=== PATIENT | female | born 1950 | race Caucasian/White ===

== ENCOUNTER → 2017-07-19 12:27 | Outpatient (CLI) | payer MEDICARE, SELFPAY ==
--- NOTE | 2017-07-19 12:31 | XR_ITS ---
XR foot wt bearing RT 3V HISTORY: ITS.REASON: foot pain ORDERING PHYSICIAN: Mavis Haq DPM PATIENT AGE: 67 years COMPARISON: None FINDINGS: Moderate to severe hallux valgus with first metatarsophalangeal angle of 42 degrees and 9 mm lateral subluxation of the proximal phalanx of the great toe with bony hypertrophic change of the distal aspect of the first metatarsal. Mild lateral angulation also noted at the second and third phalanges. Osteoarthritic changes are present at the second and third metatarsal tarsal junction. Mild pes planus with bony hypertrophic change dorsally at the mid foot. IMPRESSION: 1. Hallux valgus with osteoarthritis and bunion formation. 2. Pes planus. 3. Osteoarthritic change with bony hypertrophy at second and third metatarsal tarsal junction
--- NOTE | 2017-07-19 12:31 | XR_ITS ---
XR foot wt bearing LT 3V HISTORY: Left foot pain ITS.REASON: Foot Pain ORDERING PHYSICIAN: Mavis Haq DPM PATIENT AGE: 67 years COMPARISON: None FINDINGS: There is moderate hallux valgus with first metatarsophalangeal angle of 33 degrees. There are 6 mm lateral subluxation of the proximal phalanx of the great toe with osteoarthritic change of the first metatarsophalangeal junction and hypertrophic changes of the distal aspect of the first metatarsal. There is also mild valgus angulation and subluxation of the proximal phalanx of the second and third toes. There is an old healed fracture of the midshaft of the fourth metatarsal. There is pes planus. Only hypertrophic changes are present at the second and third metatarsal tarsal junctions with osteoarthritis in bony spurring dorsally. IMPRESSION: 1 hallux valgus with osteoarthritis in bunion formation. 2. Pes planus. 3. Osteoarthritis with bony spurring at the second and third metatarsal tarsal junction with mild lateral angulation and subluxation of the proximal phalanx of the second and third toes. 4. Old fourth metatarsal fracture
== END ==
PROVIDERS: Visit Provider Podiatrist
DX: M79.673 Pain in unspecified foot (principal)
CPT/HCPCS: 73630

== ENCOUNTER → 2017-08-04 07:59 | Outpatient (CLI) | payer MEDICARE, SELFPAY ==
--- NOTE | 2017-08-04 08:04 | XR_ITS ---
XR knee RT 4V HISTORY: ITS.REASON: right knee pain/ weightbearing ORDERING PHYSICIAN: Seven Hogdes MD PATIENT AGE: 67 years COMPARISON: None FINDINGS: Mild osteoarthritic changes are present involving all 3 departments slightly worse at the lateral compartment and patellofemoral joint. No fracture or dislocation. IMPRESSION: Osteoarthritis
--- NOTE | 2017-08-04 08:04 | XR_ITS ---
XR knee LT 4V HISTORY: ITS.REASON: left knee pain/ weightbearing ORDERING PHYSICIAN: Seven Hodges MD PATIENT AGE: 67 years COMPARISON: None FINDINGS: There are mild osteoarthritic changes involving all 3 compartments slightly worse at the patellofemoral joint. There is a prominent osteophyte along the lateral aspect of the proximal tibia projecting superiorly. No fracture or dislocation. IMPRESSION: Tricompartmental osteoarthritis worse at the patellofemoral joint with prominent lateral by about the proximal tibia
== END ==
PROVIDERS: Visit Provider Orthopaedic Surgery
DX: M25.561 Pain in right knee (principal); M25.562 Pain in left knee
CPT/HCPCS: 73564

== ENCOUNTER → 2017-12-28 13:26 | Outpatient (CLI) | payer MEDICARE, SELFPAY | PROVIDERS: Visit Provider Podiatrist | DX: B35.1 Tinea unguium (principal) | CPT/HCPCS: 87102; 87206; 87220 ==

== ENCOUNTER → 2018-01-05 12:41 | Outpatient (CLI) | payer MEDICARE, SELFPAY ==
--- NOTE | 2018-01-05 13:17 | MR_ITS ---
MR foot RT wo/w con HISTORY: Pain at the second and third metatarsal phalangeal joint. Painful to walk on, bunion ITS.REASON: pain ORDERING PHYSICIAN: Mavis Haq DPM PATIENT AGE: 67 years Comparison: None TECHNIQUE: Standard multiplanar multiecho sequences are performed without and with gadolinium enhancement. FINDINGS: There is moderate hallux valgus with first metatarsal phalangeal angle of 30 degrees. There is 7 mm lateral displacement of the proximal phalanx of the great toe with lateral displacement of the sesamoid at the first metatarsophalangeal joint. There is bunion formation at the distal aspect of the first metatarsal with osteoarthritic change of the first metatarsal phalangeal joint subcortical cystic change medially measuring 9 mm. There is also lateral angulation of the second and third proximal phalanges with mild lateral displacement of the proximal phalanges by approximately 3 to 4 mm. There is a small amount of fluid along the distal aspect of the first, second and third metatarsals suggesting intermetatarsal bursitis. No obvious fracture or dislocation. No evidence of osteomyelitis. IMPRESSION: 1. Moderate hallux valgus with osteoarthritis of the first MTP joint and bunion formation. 2. Suspect intermetatarsal bursitis at the distal aspect of the first, second, and third metatarsals.
[2018-01-05 13:19] LABS: Blood Urea Nitrogen 17 mg/dL (7-18); Creatinine,Serum 0.91 mg/dL (0.55-1.02); Estimated Glomerular Filt Rate 61 ml/min (>60); GFR (African American) 74 ML/MIN (>60)
--- NOTE | 2018-01-05 14:55 | HMH.ITSHM ---
Current Home Medications as stated by this patient Irene Ramirez or ambulatory services representative. []SYNTHROID OMEPRAZOLE NABUMETONE ALENDRONATE SOD ASPIRIN MULTIVITAMIN VITAMIN E FISH OIL CALCIUM VITAMIN D3 SUPER B COMPLEX GLUCOSAMINE W/ HYALUROIC ACID TYLENOL
== END ==
PROVIDERS: Visit Provider Podiatrist
DX: M76.821 Posterior tibial tendinitis, right leg (principal); M76.822 Posterior tibial tendinitis, left leg
CPT/HCPCS: 36415; 73720; 82565; 84520; A9576

== ENCOUNTER → 2018-02-01 10:30 | Outpatient (CLI) | payer MEDICARE, SELFPAY ==
--- NOTE | 2018-02-01 12:45 | MR_ITS ---
No Charge MR MRI of the right foot without and with contrast CLINICAL INDICATION: Foot pain with bunions EXAM is repeated to include the mid hindfoot. The forefoot was described on the previous exam. ORDERING PHYSICIAN: Mavis Haq DPM PATIENT AGE: 68 years Comparison: 01/05/2018 TECHNIQUE: Pre- and post enhanced large [id number] images obtained of the entire foot FINDINGS: Please see previous exam for forefoot description. There is severe hallux valgus with mild lateral displacement of the proximal phalanx of the great toe. Severe osteoarthritic changes are present involving the mid foot at the second, third, and fourth tarsometatarsal junction with subcortical cystic changes. There is some minimal enhancement at these joint spaces widely related to underlying inflammation from osteoarthritis. No fracture or dislocation. Prominent bony hypertrophic changes are present at the second and third metatarsal tarsal joints dorsally. No abscess. No convincing evidence of osteomyelitis. There is slight increase T1 and T2 signal involving the distal aspect of the posterior tibialis tendon consistent with tendinopathy/tendinosis. No definite tear. The flexor digitorum longus has an unremarkable appearance. There is thinning of the flexor hallucis longus as best detected on the sagittal images with some increased T2 signal about the tendon at this area and could represent tendinitis/tendinosis or partial tear. A complete tear is not felt to be present. No obvious ligamentous abnormalities. The ligaments of the ankle are not well demonstrated on this large field of view image.. Small amount fluid is noted at the posterior talocalcaneal junction. IMPRESSION: 1. Severe osteoarthritis of the second and third and fourth metatarsal tarsal junction with bony hypertrophy and subcortical cystic changes. 2. Partial tear versus tendinosis/tendinitis of the flexor hallucis longus. The posterior tibialis has an unremarkable appearance. 3. Severe hallux valgus with osteoarthritis of the first MTP joint 4. No evidence of osteomyelitis, mass, or abscess
== END ==
PROVIDERS: Visit Provider Podiatrist
DX: M76.821 Posterior tibial tendinitis, right leg (principal); M76.822 Posterior tibial tendinitis, left leg

== ENCOUNTER → 2018-02-16 12:32 | Outpatient (CLI) | payer MEDICARE, SELFPAY ==
--- NOTE | 2018-02-16 12:51 | XR_ITS ---
XR chest 2V HISTORY: Epigastric pain ITS.REASON: REFLUX, PREOP ORDERING PHYSICIAN: Mavis Haq DPM PATIENT AGE: 68 years COMPARISON: None available FINDINGS: The cardiomediastinal silhouette and pulmonary vascularity are within normal limits. The lungs are clear without infiltrates, suspicious nodules, or pleural effusions. No acute bony abnormalities. There is a moderate sized hiatal hernia seen to the cardiac shadow. IMPRESSION: Negative chest, no acute finding
[2018-02-16 13:51] LABS: Basophils # 0.1 K/mm3 (0-0.2); Basophils % 0.6 % (0.1-2.0); Eosinophils # 0.1 K/mm3 (0.0-0.4); Eosinophils % 1.7 % (0.1-12.0); Hematocrit 46.3 % (37.0-47.0); Hemoglobin 14.7 g/dL (12.2-16.2); Lymphocytes # 2.2 K/mm3 (0.7-4.5); Mean Corpuscular HGB Conc 31.7 g/dL (31.8-35.4); Mean Corpuscular Hemoglobin 28.2 pg (27.0-31.2); Mean Corpuscular Volume 89.1 fl (81-99); Mean Platelet Volume 7.7 fl (7.4-10.4); Monocytes # 0.5 K/mm3 (0.1-1.0); Monocytes % 5.6 % (1.7-9.3); Neutrophils # 5.1 K/mm3 (1.8-7.8); Neutrophils % 64.1 % (37.0-80.0); Platelet Count 284 K/mm3 (142-424); Red Cell Distribution Width 13.1 % (11.5-17.5); White Blood Count 7.9 K/mm3 (4.8-10.8)
[2018-02-16 14:18] LABS: Alanine Aminotransferase 33 U/L (12-78); Albumin Level 3.4 gm/dL (3.4-5.0); Albumin/Globulin Ratio 0.9 (1.1-1.8); Alkaline Phosphatase 94 U/L (46-116); Anion Gap 13.6 mEq/L (5-15); Aspartate Amino Transferase 28 U/L (15-37); Bilirubin,Total 0.9 mg/dL (0.2-1.0); Blood Urea Nitrogen 16 mg/dL (7-18); Calcium 8.8 mg/dL (8.5-10.1); Carbon Dioxide 29 mmol/L (21.0-32.0); Chloride 104 mmol/L (98-107); Creatinine,Serum 1.04 mg/dL (0.55-1.02); Estimated Glomerular Filt Rate 52 ml/min (>60); GFR (African American) 63 ML/MIN (>60); Globulin 3.6 gm/dl (1.3-3.2); Glucose 94 mg/dL (74-106); Potassium 4.6 mmoL/L (3.5-5.1); Sodium 142 mmol/L (136-145)
[2018-02-18 10:56] LABS: Vitamin D 25 Hydroxy 57.4 ng/mL (30.0-100.0)
== END ==
PROVIDERS: Visit Provider Podiatrist
DX: Z01.818 Encounter for other preprocedural examination (principal)
CPT/HCPCS: 36415; 71046; 80053; 82652; 85025

== ENCOUNTER → 2018-03-09 12:37 | Outpatient (CLI) | payer MEDICARE, SELFPAY ==
--- NOTE | 2018-03-09 12:42 | XR_ITS ---
XR foot wt bearing RT 3V HISTORY: Follow-up surgery ITS.REASON: post-op views ORDERING PHYSICIAN: Mavis Haq DPM PATIENT AGE: 68 years COMPARISON: 02/24/2018 FINDINGS: Posterior splint remains in place. No change status post dorsal bone plate and navicular, medial cuneiform, and proximal aspect of the first metatarsal. Transverse screw within the Roxanol first and second metatarsals, oblique screw within the midfoot at the navicular and second cuneiform region along with a staple at the cuneiform area. There is good alignment. There is a small density medial to the mid aspect of the bone plate and could be due to bone fragment or artifact from the cast. IMPRESSION: Good alignment status post midfoot fusion as previously described
== END ==
PROVIDERS: Visit Provider Podiatrist
DX: Z98.890 Other specified postprocedural states (principal)
CPT/HCPCS: 73630

== ENCOUNTER → 2018-03-23 14:05 | Outpatient (CLI) | payer MEDICARE, SELFPAY ==
--- NOTE | 2018-03-23 14:09 | XR_ITS ---
XR foot wt bearing RT 3V HISTORY: Follow-up surgery status post arthrodesis ITS.REASON: post-op ORDERING PHYSICIAN: Mavis Haq DPM PATIENT AGE: 68 years COMPARISON: 03/09/2018 FINDINGS: The posterior splint has been removed. Posterior bone plate at the navicular, first cuneiform, and proximal first metatarsal remains in place with multiple screws. The screw within the navicular into the mid cuneiform and medial aspect of the third cuneiform and the transverse screw at the base of the first and second metatarsals as well as the staple at the navicular and third cuneiform once again noted. There remains good alignment. No evidence of hardware malfunction. IMPRESSION: Good alignment status post midfoot fusion as described above with no complications apparent
== END ==
PROVIDERS: Visit Provider Podiatrist
DX: Z98.890 Other specified postprocedural states (principal)
CPT/HCPCS: 73630; 87070; 87077; 87186; 87205

== ENCOUNTER → 2018-04-12 09:53 | Outpatient (CLI) | payer MEDICARE, SELFPAY ==
--- NOTE | 2018-04-12 10:07 | XR_ITS ---
XR foot wt bearing LT 3V HISTORY: Follow-up fusion ITS.REASON: Post-op ORDERING PHYSICIAN: Mavis Haq DPM PATIENT AGE: 68 years COMPARISON: 03/23/2018 FINDINGS: Status post midfoot fusion with dorsal bone plate at the navicular, medial cuneiform, and proximal aspect of the first metatarsal with additional stabilizing screws into the base of the second metatarsal and middle cuneiform as well as a staple at the lateral cuneiform and navicular region. This is not significant changed. There remains good alignment. There has been prior bunionectomy at the first metatarsal distally. No bony erosive process or hardware malfunction evident. IMPRESSION: Status post midfoot arthrodesis and bunionectomy as described above not significantly changed
== END ==
PROVIDERS: Visit Provider Podiatrist
DX: Z98.890 Other specified postprocedural states (principal)
CPT/HCPCS: 73630

== ENCOUNTER → 2018-04-17 14:53 | Outpatient (CLI) | payer MEDICARE, SELFPAY ==
[2018-04-17 15:08] LABS: Basophils % 0.5 % (0.1-2.0); Eosinophils # 0.2 K/mm3 (0.0-0.4); Eosinophils % 2.2 % (0.1-12.0); Hematocrit 46.1 % (37.0-47.0); Hemoglobin 14.9 g/dL (12.2-16.2); Lymphocytes # 1.8 K/mm3 (0.7-4.5); Lymphocytes % 25.4 % (10-50); Mean Corpuscular HGB Conc 32.3 g/dL (31.8-35.4); Mean Corpuscular Hemoglobin 28.5 pg (27.0-31.2); Mean Corpuscular Volume 88.3 fl (81-99); Mean Platelet Volume 7.6 fl (7.4-10.4); Monocytes # 0.4 K/mm3 (0.1-1.0); Monocytes % 6.2 % (1.7-9.3); Neutrophils # 4.7 K/mm3 (1.8-7.8); Neutrophils % 65.7 % (37.0-80.0); Platelet Count 264 K/mm3 (142-424); Red Blood Count 5.22 M/mm3 (4.20-5.40); Red Cell Distribution Width 12.6 % (11.5-17.5); White Blood Count 7.2 K/mm3 (4.8-10.8)
[2018-04-17 15:58] LABS: Erythrocyte Sedimentation Rate 10 mm/hr (0-30)
[2018-04-17 16:39] LABS: Alanine Aminotransferase 35 U/L (12-78); Albumin Level 3.5 gm/dL (3.4-5.0); Alkaline Phosphatase 94 U/L (46-116); Anion Gap 14.1 mEq/L (5-15); Aspartate Amino Transferase 23 U/L (15-37); Bilirubin,Total 1.1 mg/dL (0.2-1.0); Blood Urea Nitrogen 21 mg/dL (7-18); Calcium 9.5 mg/dL (8.5-10.1); Carbon Dioxide 28 mmol/L (21.0-32.0); Chloride 104 mmol/L (98-107); Creatinine,Serum 1.09 mg/dL (0.55-1.02); Estimated Glomerular Filt Rate 50 ml/min (>60); GFR (African American) 60 ML/MIN (>60); Globulin 3.6 gm/dl (1.3-3.2); Glucose 95 mg/dL (74-106); Potassium 4.1 mmoL/L (3.5-5.1); Sodium 142 mmol/L (136-145); Total Protein,Serum 7.1 gm/dL (6.4-8.2)
[2018-04-17 16:42] LABS: C-Reactive Protein < 0.2 mg/L (0.0-0.9)
== END ==
PROVIDERS: Visit Provider Podiatrist
DX: T81.31XA Disruption of external operation (surgical) wound, not elsewhere classified, initial encounter (principal); Z98.890 Other specified postprocedural states
CPT/HCPCS: 36415; 80053; 85025; 85651; 86140

== ENCOUNTER → 2018-05-11 10:03 | Outpatient (CLI) | payer MEDICARE, SELFPAY ==
--- NOTE | 2018-05-11 10:08 | XR_ITS ---
XR foot wt bearing RT 3V HISTORY: Follow-up fusion ITS.REASON: post-op views ORDERING PHYSICIAN: Mavis Haq DPM PATIENT AGE: 68 years COMPARISON: 04/12/2018 FINDINGS: Status post midfoot fusion as previously described. Bone plate screws and staple remain in place. No evidence of hardware failure. There remains good alignment. IMPRESSION: No change midfoot fusion
== END ==
PROVIDERS: Visit Provider Podiatrist
DX: Z98.890 Other specified postprocedural states (principal)
CPT/HCPCS: 73630

== ENCOUNTER → 2018-06-06 11:14 | Outpatient (CLI) | payer MEDICARE, SELFPAY ==
--- NOTE | 2018-06-06 11:21 | XR_ITS ---
XR foot wt bearing RT 3V HISTORY: Follow-up surgery ITS.REASON: post-op ORDERING PHYSICIAN: Mavis Haq DPM PATIENT AGE: 68 years COMPARISON: 05/11/2018 FINDINGS: Status post midfoot fusion as previously described with no change in the dorsomedial bone plate at the navicular, first cuneiform, and first metatarsal with stabilizing screws. No change in the staple at the navicular cuneiform region. There remains mild hallux valgus. IMPRESSION: Good alignment status post midfoot fusion, no significant change
== END ==
PROVIDERS: Visit Provider Podiatrist
DX: Z98.890 Other specified postprocedural states (principal)
CPT/HCPCS: 73630

== ENCOUNTER → 2018-07-18 12:42 | Outpatient (CLI) | payer MEDICARE, SELFPAY ==
--- NOTE | 2018-07-18 12:45 | XR_ITS ---
XR foot wt bearing LT 3V HISTORY: ITS.REASON: pain ORDERING PHYSICIAN: Mavis Haq DPM PATIENT AGE: 68 years COMPARISON: 07/19/2017 FINDINGS: There remains moderate hallux valgus with osteoarthritis of the first MTP joint and bunion formation at the distal first metatarsal. Osteoarthritic changes are present at the metatarsal tarsal joint of the second and third metatarsals. There is an old fifth metatarsal fracture. Prominent bony hypertrophic changes are present dorsally at the second and third metatarsal tarsal joint. IMPRESSION: No change hallux valgus with osteoarthritis
--- NOTE | 2018-07-18 12:45 | XR_ITS ---
XR ankle wt bearing LT min 3V HISTORY: ITS.REASON: pain ORDERING PHYSICIAN: Mavis Haq DPM PATIENT AGE: 68 years Comparison: None FINDINGS: Some artifact from overlying bandage No fracture or dislocation. No lytic or blastic change. There is normal mineralization.. The joint spaces are well-preserved. No significant degenerative/arthritic changes. No erosive changes evident. IMPRESSION: Negative ankle, no acute finding
== END ==
PROVIDERS: Visit Provider Podiatrist
DX: M25.572 Pain in left ankle and joints of left foot (principal)
CPT/HCPCS: 73610; 73630

== ENCOUNTER → 2018-09-18 09:15 | Outpatient (CLI) | payer MEDICARE, SELFPAY ==
[2018-09-18 09:30] LABS: Blood Urea Nitrogen 14 mg/dL (7-18); Creatinine,Serum 1.11 mg/dL (0.55-1.02); Estimated Glomerular Filt Rate 49 ml/min (>60); GFR (African American) 59 ML/MIN (>60)
--- NOTE | 2018-09-18 09:33 | MR_ITS ---
MR ankle LT wo/w con CLINICAL INDICATION: Medial sided ankle pain, previous injury with pain and swelling, tibial tendinitis ITS.REASON: Tendon Injury ORDERING PHYSICIAN: Mavis Haq DPM PATIENT AGE: 68 years Comparison: 07/18/2018 TECHNIQUE: Routine multiplanar multiecho sequences are performed without and with gadolinium enhancement. FINDINGS: There is mild diffuse subcutaneous soft tissue swelling. Fluid is present superior to the calcaneus, posterior to the talus, and along the anterior tibiotalar joint. There is a small amount of fluid and edema of the soft tissues around the superior aspect of the tibialis posterior tendon. The axial images suggest a small split tear superiorly 2.6 cm above the level of the ankle joint. The distal aspect of the tibialis posterior shows increased signal on the sagittal images however, this may be due to magic angle artifact appearing to be intact on the axial images. Cannot exclude a partial tear or tendinitis distally. The flexor digitorum longus and flexor hallucis longus tendons have an unremarkable appearance. The Achilles tendon appears intact. The peroneal tendons also appear intact. There is a small amount fluid along the lateral aspect of the calcaneal talar region. Small amount of fluid is also present around the flexor hallucis longus at the level of the ankle joint. There is also some fluid around the tendon of the anterior tibialis tendon. No fracture or dislocation of the bones of the ankle. The anterior and posterior tibiofibular ligaments appear intact as does the posterior talofibular ligament. There does appear to be a chronic tear of the anterior talofibular ligament with thinning of the ligament and small amount fluid in this region. Doppler ligament appears intact. IMPRESSION: 1. Suspect small split tear of the proximal aspect of the posterior tibialis tendon with tenosynovitis of the tendon sheath proximally. Increased T2 signal on the sagittal images of the distal aspect of the posterior tibialis which may be magic angle artifact. Cannot exclude partial tear/tendinosis. 2. 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 3. Tenosynovitis of the anterior tibialis tendon 4. Soft tissue swelling lung medial aspect of the ankle with ankle joint effusions IMPRESSION:
--- NOTE | 2018-09-18 09:33 | MR_ITS ---
MR foot LT wo/w con CLINICAL INDICATION: Medial sided ankle pain, prior injury with pain, tendinitis ITS.REASON: Tendon Injury ORDERING PHYSICIAN: Mavis Haq DPM PATIENT AGE: 68 years Comparison: 07/18/2018 TECHNIQUE: Routine multiplanar multiecho sequences are performed without and with gadolinium enhancement FINDINGS: Please see MRI ankle report for ankle and hindfoot findings. IMPRESSION: There is moderate to severe hallux valgus with osteoarthritic change of the first metatarsal phalangeal joint with bony hypertrophy of the distal aspect of the first metatarsal there is lateral displacement of the flexor hallucis longus tendon. Severe osteoarthritic changes are present at the first, second, and third metatarsal are still joints. No obvious ligamentous abnormality of the forefoot. No abnormal enhancement. No evidence of osteomyelitis or acute fracture. IMPRESSION: Hallux valgus with severe osteoarthritis of the first and second and third metatarsal tarsal joints
--- NOTE | 2018-09-18 11:30 | HMH.ITSHM ---
Current Home Medications as stated by this patient Irene Ramirez or primary care sales representative. []SYNTHROID PRILOSEC FOSMAX
== END ==
PROVIDERS: Visit Provider Podiatrist
DX: M76.822 Posterior tibial tendinitis, left leg (principal)
CPT/HCPCS: 36415; 73720; 73723; 82565; 84520; A9576

== ENCOUNTER → 2018-12-11 11:59 | Outpatient (CLI) | payer MEDICARE, SELFPAY ==
--- NOTE | 2018-12-11 12:38 | ECG_ITS ---
APPROVED REPORT Exam: Resting ECG HR:61 bpm ECG Measurements Heart Rate 61 AXES TX 144 P 44 QRSd 80 QRS -2 QT 414 T 23 QTc 416 <Conclusion> Normal sinus rhythm Normal ECG Electronically signed by : Juan Jose Moreno, 12/11/2018 18:26:38
[2018-12-11 12:44] LABS: Basophils # 0.1 K/mm3 (0-0.2); Eosinophils # 0.2 K/mm3 (0.0-0.4); Eosinophils % 2.3 % (0.1-12.0); Hematocrit 46.5 % (37.0-47.0); Hemoglobin 15.3 g/dL (12.2-16.2); Lymphocytes # 2.1 K/mm3 (0.7-4.5); Mean Corpuscular HGB Conc 32.9 g/dL (31.8-35.4); Mean Corpuscular Volume 88.1 fl (81-99); Mean Platelet Volume 8.3 fl (7.4-10.4); Monocytes # 0.5 K/mm3 (0.1-1.0); Monocytes % 7.5 % (1.7-9.3); Neutrophils % 58.2 % (37.0-80.0); Platelet Count 262 K/mm3 (142-424); Red Blood Count 5.28 M/mm3 (4.20-5.40); Red Cell Distribution Width 12.9 % (11.5-17.5); White Blood Count 6.8 K/mm3 (4.8-10.8)
--- NOTE | 2018-12-11 12:44 | XR_ITS ---
PROCEDURE: XR CHEST 2V CLINICAL HISTORY: HTN, PRE OP COMPARISON: CXR2V XR chest 2V from 02/16/2018 FINDINGS: The cardiomediastinal silhouette and pulmonary vascularity are within normal limits. Hiatal hernia is present. Lungs are otherwise clear. There is some hyperinflation with increased AP diameter of the chest suggesting COPD. Mild degenerative changes thoracic spine. There is scoliosis of the lumbar spine convex left. IMPRESSION: Hiatal hernia with COPD Dictated by: Renny Zamarripa MD 12/11/2018 13:00 Electronically signed by Renny Zamarripa MD in [place] 12/11/2018 13:00
[2018-12-11 13:49] LABS: Alanine Aminotransferase 36 U/L (12-78); Albumin Level 3.6 gm/dL (3.4-5.0); Alkaline Phosphatase 77 U/L (46-116); Aspartate Amino Transferase 30 U/L (15-37); Bilirubin,Total 0.8 mg/dL (0.2-1.0); Blood Urea Nitrogen 15 mg/dL (7-18); Calcium 9.6 mg/dL (8.5-10.1); Carbon Dioxide 34 mmol/L (21.0-32.0); Chloride 102 mmol/L (98-107); Creatinine,Serum 1.08 mg/dL (0.55-1.02); Estimated Glomerular Filt Rate 50 ml/min (>60); GFR (African American) 61 ML/MIN (>60); Globulin 3.5 gm/dl (1.3-3.2); Glucose 89 mg/dL (74-106); Sodium 141 mmol/L (136-145); Total Protein,Serum 7.1 gm/dL (6.4-8.2)
[2018-12-13 08:20] LABS: Vitamin D 25 Hydroxy 64.4 ng/mL (30.0-100.0)
== END ==
PROVIDERS: PCP Nurse Practitioner; Visit Provider Podiatrist
DX: Z01.818 Encounter for other preprocedural examination (principal); M25.372 Other instability, left ankle; S86.112D Strain of other muscle(s) and tendon(s) of posterior muscle group at lower leg level, left leg, subsequent encounter
CPT/HCPCS: 36415; 71046; 80053; 82652; 85025; 93005

== ENCOUNTER 2019-01-03 06:07 | Observation (INO) ==
--- NOTE | 2019-01-03 07:11 | Progress Note ---
[facility] Anesthesia Checklist - Structural Data Admitted From: Home Planned Operative Procedure/s: orif l foot Consent for Planned Operative Procedure(s) Verified: Yes - Additional verifications Anesthesia Reactions: No Hx Blood Transfusions: No Blood Transfusion Reaction: No - Airway Assessment C-Spine Mobility Assessed: Yes TMJ Mobility Assessed: Yes Dentition: Good Dentition - Neurological Assessment Level of Consciousness: Awake, Alert, Appropriate - Anesthesia Plan Anesthesia Risk discussed: Yes Anesthesia Plan: Verified ASA Class: II Anesthesia Type: General - Preoperative Comments Pre-Operative Comments: popliteal block exp to pt, pt agrees to proceed [facility] History Medical History: Reports:: Gastroesophageal Reflux Disease(GERD), Hypertension, Osteoporosis Denies:: Cancer, Diabetes Mellitus Type 1, Diabetes Mellitus Type 2, Internal Pacemaker, MRSA, Seizures *Have you ever received a pneumonia vaccine?: Yes *Have you received a flu vaccine this season?: No Other Medical History: Reports: Arthritis, Hypothyroidism, Osteoporosis, Thyroid Disease (Thyroiditis). Denies: Blood Transfusion Reaction Anesthesia experience/problems:: none Laterality Cases: Bilateral: Tonsillectomy Other Surgeries: Yes: No Previous Surgery, Other. No: Pacemaker Amputation: No Fractures: No - *Social History Educational Level: Completed Graduate School Smoking Status: Never smoker Alcohol Intake: never Alcohol Intake Frequency:: other Substance Use Type: denies use *Occupational Status:: retired Housing: house Household Members: spouse *Travel in the last 8 weeks: None Family Hx:: Cancer, Coronary Artery Disease, Heart Attack, Stroke
--- NOTE | 2019-01-03 15:22 | Progress Note ---
[facility] Anesthesia Record Part II Discharge Time: 15:43 Destination: Medical Surgical Department PACU nurse assessment reviewed?: Yes Patient Condition:: Good Anesthesia Complications:: None Swallowing reflex intact?: Yes Cyanosis?: No
--- NOTE | 2019-01-03 15:22 | Progress Note ---
[facility] Anesthesia Record Part I Intake, IV Amount: 1,500 Estimated blood loss (mL): 150 Urine output (mL): 500 Blood Products used (#): none Blood Pressure: 135/69 SaO2: 94 Pulse Rate: 94 Respiratory Rate: 10 Temperature: 97.1 F Patient is:: Drowsy, Nasal O2, Stable Stable to PACU at:: 15:13
--- NOTE | 2019-01-03 15:42 | H&P/Discharge Summary ---
General - General Admission date:: 01/03/19 Discharge date: 01/04/19 *Admission Date: 01/03/19 *Chief complaint: Left foot osteoarthritis, tendon tear *History of present illness: Ms. Ramirez is a 68-year-old female who presents for admission status post left foot reconstruction. Patient suffered a tendon injury several months ago. 02/24/18 she underwent right foot reconstruction. The plan was to undergo similar procedure on the left but in the interim patient sustained injury leading to some ankle instability and posterior tibial tendon tear. Necessary labs and pre- op testing ordered: CBC, CMP, CXR, EKG, vitamin D. Patient has clearance from Dr. Louise Lugo. Rx for [place] 7.5mg # 28, Zofran 4mg # 30, Motrin 800mg # 60 given, Lovenox. We discussed DVT prophylaxis in detail. Recommend using an SCD postoperatively as well as anticoagulation therapy. [facility] History I have reviewed the patient's past medical history: Yes Medical History: Reports:: Gastroesophageal Reflux Disease(GERD), Hypertension, Osteoporosis Denies:: Cancer, Diabetes Mellitus Type 1, Diabetes Mellitus Type 2, Internal Pacemaker, MRSA, Seizures *Have you ever received a pneumonia vaccine?: Yes *Have you received a flu vaccine this season?: No Other Medical History: Reports: Arthritis, Hypothyroidism, Osteoporosis, Thyroid Disease (Thyroiditis). Denies: Blood Transfusion Reaction Anesthesia experience/problems:: none Laterality Cases: Bilateral: Tonsillectomy Other Surgeries: Yes: No Previous Surgery, Other. No: Pacemaker Amputation: No Fractures: No - *Social History Educational Level: Completed Graduate School Smoking Status: Never smoker Alcohol Intake: never Alcohol Intake Frequency:: other Substance Use Type: denies use *Occupational Status:: retired Housing: house Household Members: spouse *Travel in the last 8 weeks: None Family Hx:: Cancer, Coronary Artery Disease, Heart Attack, Stroke Review of Systems - Review of Systems Review of systems:: pertinent systems reviewed and negative unless documented below - Constitutional Denies chills, Denies fatigue - Eyes Denies blind spots - ENT Denies abnormal hearing - *Cardiovascular Denies chest pain, Denies shortness of breath - *Respiratory Denies shortness of breath - *Gastrointestinal Denies abdominal pain - *Genitourinary Denies abnormal periods - *Musculoskeletal Reports joint swelling, Reports limited joint movement - Integumentary/Breasts Denies skin ulcer - *Neurologic Denies abnormal walking - Psychiatric Denies abnormal sleep pattern - Endocrine Denies rapid, pounding, or irregular heartbeat - Hematologic/Lymphatic Reports easy bruising - Allergic/Immunologic Reports GI upset with certain foods Exam Vital signs and Labs for Last 24 Hours: Temp Pulse Resp BP Pulse Ox 97.1 F L 94 H 10 L 135/69 97 01/03/19 15:22 01/03/19 15:22 01/03/19 15:22 01/03/19 15:22 01/03/19 06:24 Laboratory Results - last 24 hr 01/03/19 08:35: Urine Color Yellow, Urine Appearance Clear, Urine pH 7.0, Ur Specific Bruno 1.020, Urine Protein Negative, Urine Glucose (UA) Negative, Urine Ketones Negative, Urine Blood Trace-i, Urine Nitrate Positive, Urine Bilirubin Negative, Urine Urobilinogen 0.2, Ur Leukocyte Esterase 2+ A, Urine RBC 3-5, Urine WBC 20-50 A, Ur Squamous Epith Cells Occasional, Urine Bacteria 4+ A I & O for Last 24 hours: Intake & Output 01/01/19 01/02/19 01/03/19 01/04/19 11:59 11:59 11:59 11:59 Intake Total 1500 / 1500 Balance 1500 / 1500 Weight 165 lb - Constitutional no acute distress - *Routine HEENT Exam Head: Present: normocephalic - *Routine Neck Exam Present: supple - *Routine Respiratory Exam Present: accessory muscle use - *Routine Cardiovascular Exam Present: RRR - *Routine Abdominal Exam Present: soft. Absent: guarding - *Routine Rectal Exam Patient deferred: visual exam - *Routine Exam Patient deferred: external exam - *Routine Extremities Exam Present: pulses intact, normal capillary refill - *Routine Skin Exam Present: intact, warm - *Routine Neurological Exam Present: alert, moving all extremities - Detailed Lower Extremity Exam Comments: Likely lower extremity splint clean dry and intact. Cap fill time within normal limits. Palpable pedal pulses. Skin temp warm. K wire intact to the left second toe. No calf or thigh pain noted bilaterally. Decreased light touch sensation and motor function secondary to nerve block. Hospital Course Hospital Course: Patient had an uneventful postoperative course overnight. She was admitted 01/03/2019 after left foot surgery. Patient did have a Bennett intact. New labs this morning show increased white count with positive urine culture. Bennett removed and patient started on Cipro. She will go home with a prescription for Cipro 500 mg twice daily x2 weeks. Patient denies pain this morning. Resting comfortably in bed. Cryo/Cuff polar pack behind the knee with the leg elevated on 2 pillows. Patient demonstrated use of and spent incentive spirometer. Patient was educated on usage. Patient has DME: Walker and rolling knee scooter. Patient got all of her other prescriptions filled. She will get the Cipro prior to discharge today. Results Completed studies during hospitalization [Text1]: Left foot and ankle x-ray 01/03/2019 evaluated by myself. Retained orthopedic hardware no noted to the foot. K wire to the tip of the left second toe. Reduction of bunion and hammertoe deformities. Labs on day of discharge: Labs from last 24 hours 01/03/19 08:35 Urine Color Yellow Urine Appearance Clear Urine pH 7.0 Ur Specific Bruno 1.020 Urine Protein Negative Urine Glucose (UA) Negative Urine Ketones Negative Urine Blood Trace-i Urine Nitrate Positive Urine Bilirubin Negative Urine Urobilinogen 0.2 Ur Leukocyte Esterase 2+ A Urine RBC 3-5 Urine WBC 20-50 A Ur Squamous Epith Cells Occasional Urine Bacteria 4+ A DS: Diagnosis - Discharge Diagnosis (1) Osteoarthritis of left foot Status: Acute (2) Hallux valgus (acquired), left foot Status: Acute (3) Acquired hammertoe of left foot Status: Acute (4) Metatarsalgia, left foot Status: Acute (5) Traumatic rupture of left posterior tibial tendon Status: Acute (6) Nontraumatic rupture of left posterior tibial tendon Status: Acute (7) Traumatic rupture of left anterior tibial tendon Status: Acute (8) Gastrocnemius equinus of left lower extremity Status: Acute (9) Overweight (BMI 25.0-29.9) Status: Acute (10) UTI (urinary tract infection) Start date: 01/04/19 Status: Acute Discharge Plan - Patient Discharge Instructions ACTIVITY: Limited activity DIET: advance to your usual diet Additional Instructions: Patient is to maintain posterior splint clean dry and intact. Cryo cuff, ice behind the knee and elevate on two pillows. Non weight bearing to the right lower extremity with DME assistance (walker, rolling knee scooter). Incentive spirometer. Rx for [place] 7.5, Zofran, Motrin, Lovenox 40mg #20. New e-Rx Cipro for UTI. Follow up in 1 week. - Follow up Plan Follow up with: Mavis Haq DPM [Staff Physician] - Disposition: Home, Self-[facility] Medications: Home Medications Medication Instructions Recorded Confirmed Type acetaminophen ER 650 mg 650 mg PO ONCE 07/19/17 01/02/19 History tablet,extended release aspirin 81 mg tablet,delayed 81 mg PO ONCE 07/19/17 01/02/19 History release levothyroxine 88 mcg tablet 88 mcg PO DAILY 07/19/17 01/02/19 History multivitamin tablet 1 tab PO QAM 07/19/17 01/02/19 History nabumetone 750 mg tablet 750 mg PO BID 07/19/17 01/02/19 History omega-3 fatty acids-fish oil 360 1 cap PO BID 07/19/17 01/02/19 History mg-1,200 mg capsule omeprazole 20 mg capsule,delayed 20 mg PO DAILY 07/19/17 01/02/19 History release vitamin B complex tablet 1 tab PO DAILY 07/19/17 01/02/19 History vitamin E 200 unit capsule 800 unit PO DAILY cap 07/19/17 01/02/19 History alendronate 70 mg tablet 70 mg PO DAILY 84 Days #12 tab 02/16/18 01/02/19 History Ergocalciferol (Vitamin D2) 50,000 unit PO QWEEK 02/22/18 01/02/19 History [Drisdol] diclofenac 1 % topical gel 4 g TOPICAL QID #30 g 08/31/18 01/02/19 Rx hydrochlorothiazide 25 mg tablet 25 mg PO DAILY #90 tab 09/26/18 01/02/19 History ciclopirox 8 % topical solution 1 applic TOPICAL DAILY 90 Days 12/11/18 01/02/19 Rx #6.6 ml enoxaparin 40 mg/0.4 mL 40 mg SQ QDAY 42 Days #16.8 ml 12/11/18 01/02/19 Rx subcutaneous syringe hydrocodone 7.5 mg-acetaminophen 1 tab PO Q4-6H PRN #30 tab 12/11/18 01/02/19 Rx 325 mg tablet ibuprofen 800 mg tablet 800 mg PO BID 90 Days #180 tab 12/11/18 01/02/19 Rx Ciprofloxacin HCl [Ciprofloxacin 500 mg PO BID 14 Days #28 tab 01/04/19 Rx 500mg Tab] Prescriptions/Medication Reconciliation: Continued levothyroxine 88 mcg tablet 88 mcg PO DAILY omeprazole 20 mg capsule,delayed release 20 mg PO DAILY nabumetone 750 mg tablet 750 mg PO BID multivitamin tablet 1 tab PO QAM vitamin E 200 unit capsule 800 unit PO DAILY cap vitamin B complex tablet 1 tab PO DAILY diclofenac 1 % topical gel 4 g TOPICAL QID #30 g hydrocodone 7.5 mg-acetaminophen 325 mg tablet 1 tab PO Q4-6H PRN #30 tab PRN Reason: pain enoxaparin 40 mg/0.4 mL subcutaneous syringe 40 mg SQ QDAY 42 Days #16.8 ml omega-3 fatty acids-fish oil 360 mg-1,200 mg capsule 1 cap PO BID hydrochlorothiazide 25 mg tablet 25 mg PO DAILY #90 tab ibuprofen 800 mg tablet 800 mg PO BID 90 Days #180 tab Ciprofloxacin HCl [Ciprofloxacin 500mg Tab] 500 mg PO BID 14 Days #28 tab Ergocalciferol (Vitamin D2) [Drisdol] 50,000 unit PO QWEEK Discontinued aspirin 81 mg tablet,delayed release 81 mg PO ONCE acetaminophen ER 650 mg tablet,extended release 650 mg PO ONCE alendronate 70 mg tablet 70 mg PO DAILY 84 Days #12 tab ciclopirox 8 % topical solution 1 applic TOPICAL DAILY 90 Days #6.6 ml - Problem Reconciliation Problems Reviewed?: Yes
--- NOTE | 2019-01-03 15:51 | Operative Note ---
Date of procedure: 01/03/19 Pre-op Diagnosis:: 1. Posterior tibial tendinitis of left lower extremity M76.822 2. Rupture of left posterior tibialis tendon, subsequent encounter S86.112D 3. Nontraumatic rupture of left posterior tibial tendon M66.872 4. Tenosynovitis of left ankle M65.9 5. Sprain of left medial ankle joint, subsequent encounter S93.422D 6. Sprain of anterior talofibular ligament of left ankle, subsequent encounter S93.492D 7. Left ankle effusion M25.472 8. Edema of left ankle M25.472 9. Left ankle instability M25.372 10. Status post foot surgery Z98.890 11. Acquired hallux valgus of left foot M20.12 12. Acquired hammertoe of left foot M20.42 13. Chronic pain of left ankle M25.572; G89.29 14. Left gastroc equinus 15. Overweight (BMI 25.0-29.9) E66.3 Post-op Diagnosis:: Same + left anterior tibial tendon rupture Procedure performed:: 1. Left navicular cuneiform arthrodesis 2. Left tarsometatarsal arthrodesis, 2-3 3. Left Lapidus bunionectomy 4. Left posterior tibial tendon debridement and repair 5. Left tibialis anterior tendon debridement and repair 6. Left modified Brostrum lateral ankle ligament stabilization 7. Left gastrocnemius recession 8. Left second, third metatarsal phalangeal joint releases 9. Left extensor tendon lengthening, 2-3 10. Left 2nd PIPJ AP 11. Left foot/ankle synovectomy Surgeon:: Mavis Haq DPM [employer]:: Samy Garber Anesthesia: regional (L popliteal block), LMA Estimated blood loss (mL): 30 Clinical Note:: Mrs. Ramirez is a 68F who presents for left foot pain and surgery. She underwent right foot reconstruction 02/24/18. Plan was to perform similar surgical intervention on the left however patient subsequently had an injury which she sprained her ankle and tore her PT tendon. X-rays and MRI show significant degenerative disease, arthritis and deformity in the forefoot and midfoot. The patient has tried modification of shoe gear, taping, strapping, inserts, ice, elevation, and NSAIDs. She has also tried bracing, injections and physical therapy. After a long discussion with the patient in regards to the conservative versus surgical treatment for the arthritic deformity, bunion, hammertoes and tendinitis, the patient has elected to proceed with surgery because they have failed conservative treatment and continue to have pain and worsening symptoms affecting daily activities. The patient has been instructed on the planned procedure, all risk versus benefits of the procedure discussed. These include but are not limited to: bleeding, infection, nerve and blood vessel damage, need for further surgery, delay in healing of soft tissue or bone, failure of bones to heal, non-union, mal-union, failure of the implant, prolonged pain and recovery, CPRS/RSD, DVT, anesthetic complications and even . No guarantees were given. All questions fully answered. The patient verbalized understanding and agreed to proceed with surgery. Written consent was obtained. Necessary labs and pre-op testing ordered: CBC, CMP, CXR, EKG, vitamin D. Patient has clearance from Dr. Louise Lugo. Rx for Ruffin 7.5mg # 28, Zofran 4mg # 30, Motrin 800mg # 60 given, Lovenox. We discussed DVT prophylaxis in detail. Recommend using an SCD postoperatively as well as anticoagulation therapy. Operative findings:: Left posterior tibial tendon longitudinal tear with significant thickness and fibrotic tissue. Significant degenerative changes and tear extending from the insertion on the navicular to the attachment into the muscle. Synovitis noted to the PT sheath, ankle and midfoot. The bone quality overall was very soft, osteoporotic. Longitudinal tear noted to the anterior tibial tendon with synovitis as well. Degenerative changes noted to the midfoot. 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 Operative note:: On this date and time patient was deemed an appropriate surgical candidate. With informed consent signed, the patient was taken to the operating theater, after the anesthesia team had given a pre-op regional popliteal and saphenous nerve block. The patient was positioned supine. General anesthesia was induced. Tourniquet was applied to the left thigh. Left Lapidus Bunionectomy: The lower extremity was prepped and draped in normal sterile fashion. Attention was directed to the 1st metatarsophalangeal joint (MPJ), where a dorsal linear incision was mapped out extending proximally to the cuneiform. The tourniquet was inflated at 250 mmHg. Dissection was carried thru skin and subcutaneous tissue with care taken to maintain surgical hemostasis and safely retract neurovascular structures. Dissection was then carried through deep fascia and T- out at the level of the 1st MPJ, exposed the met head. There was synovitis and mild degenerative changes noted to the medial met head. There was a large dorsal medial eminence. Attention was directed to the 1st interspace where a lateral release was performed, including release of the adductor tendon at its insertion on the base of the proximal phalanx and release of the fibular suspensory ligament. Some release of the contracture was noted. Attention was then directed proximal to the 1st MCJ, where increased sagittal plane ROM was appreciated. Using saw then hand resection with osteotome and curettes, the cartilage was removed from the met and distal cuneiform. The wound was flushed with copious amounts of sterile saline. Left Navicular Cuneiform Arthrodesis: The previous incision was extended proximally to the navicular cuneiform joint (NCJ). Dissection was carried thru skin and subcutaneous tissue with care taken to maintain surgical hemostasis and safely retract neurovascular structures. The medial margin vein and intermediate dorsal cutaneous nerve (IDCN) was identified and safely retracted. Dissection was then carried through deep fascia, the tibialis anterior (TA) tendon was not to be torn. It was retracted, and dissection was carried to the level of the bone. The distal navicular and cuneiform was exposed. There was also synovitis noted around the NCJ. Left Foot Synovectomy: Utilizing sharp and blunt dissection the synovitic tissue was debrided. The wound was then flushed with copious amounts of normal sterile saline. Left Posterior Tibial Tendon Debridement and Repair: Skin incision was then extended from the proximal navicular cuneiform joint to posterior of the medial malleolus following the course of the posterior tibial tendon. The PT tendon sheath was inspected and there were synovitic tissue and fluid within the sheath. It was debrided. There was thickening, frayed tendon and hematoma around 2 cm proximal to the ankle. There were also longitudinal tears noted from insertion on the navicular to the attachment of the muscle. Utilizing a 15 blade the tendon was transected and the tear was removed and sent to pathology as a specimen. The tendon was re-tubularized with 4-0 Vicryl in a running fashion within the tendon. Next, 4-0 Prolene was used to reapproximate the tendon in a baseball running fashion. Flushed with copious amounts of normal sterile saline. Attention was directed back to the navicular conformed joint. The NCJ was distracted. Using hand resection with osteotome and curettes, the cartilage was removed from the navicular and medial and intermediate cuneiforms. The wound was flushed with copious amounts of sterile saline. Left Tarsometatarsal Arthrodesis, 2-3: A separate dorsal incision was then made over the dorsal aspect of the second and third tarsometatarsal joints. Dissection was carried in a layered fashion with care taken to maintain surgical hemostasis and safely retract neurovascular fractures. Utilizing a saw then osteotome and curette the cartilage was removed from the base of the metatarsals 2 and 3 and the cuneiforms. The wound was flushed with copious amounts of normal sterile saline. A 2.0 drill bit was used to fenestrate the subchondral bone plate to good healthy bleeding bone at the level of the NCJ, 1st met-cun and TMT joints. At this point, the NCJ was reduced, removing the NC fault, and temporary fixation was inserted around navicular to medial and intermediate cuneiforms. Next, the bunion was reduced and temporary fixation inserted across the 1st MCJ. The TMT was reduced and temporary fixation inserted. Position was checked under intra-op fluoroscopy. Sarata plate, screws were utilized across the 1st metatarsal, cuneiform and navicular. Augment was inserted into the arthrodesis sites. Intra- fragmentary compression screw and plate, with locking screws were then inserted in standard technique. Good apposition and position was noted. Compression was noted across the 1st met-cun joint and cun-navicular joints. X-ray confirmed position and hardware was not in the talonavicular joint. Next, attention was directed to the NCJ were 4.0mm cannulated partially threaded screws x 1 was inserted. Reduction clamp removed from metatarsals. The foot was stressed and residual instability was noted at between the 1st and 2nd metatarsals. So a 4.0mm Dartfire screw was inserted from medial 1st met base to the 2nd met base. Melinda were also utilized to compression to tarsometatarsal joints, from metatarsal to the cuneiform. Position was checked under intra-op fluoroscopy. Good compression and better stability noted. Left Modified Hurst: The wound was flushed. Attention was directed distally back to the MPJ, where there was a cyst noted on the medial aspect of the remaining metatarsal head. Power resection was used to remove the large dorsal medial eminence, which also remove the cyst. A capsulotomy was performed to remove redundant tissue and repaired in an over and over fashion with 2-0 Vicryl. The wound was flushed with copious amounts of saline. 3-0 Vicryl was used to close deep tissue in a running fashion. The tourniquet was deflated after 125 mins and immediate hyperemic response was noted to the digits. The tourniquet was left deflated for over 30 minutes before re-inflation. Left Gastroc Recession: Attention was directed to the posterior medial leg where equinus deformity was noted. Dissection was carried down to the tendon and the gastroc was transected with the foot in dorsiflexion with release was noted. It was flushed with saline. Deep tissue, peritenon and subcutaneous tissue repaired with 3-0 Vicryl. Skin repaired with 4-0 Monocryl in a running fashion. Left 2-3rd MPJ Release: Attention was directed to the MPJ, where an incision was made over the 2nd interspace extending proximal between the 2-3rd metatarsals. Attention was directed to the 2nd and 3rd MPJs, the extensor tan fibers and ligaments were released. A McGlamry elevator was used to release plantar adhesions. Release of some contracture noted. Intra-op fluoroscopy was utilized to check position and fixation of hammertoes and MPJ alignment. There was still some residual lateral MPJ deviation, so 4-0 Prolene was used to suture the medial aspect of the 2-3rd MPJs. The second met was slightly elongated. But no plantar prominence noted. Shortening osteotomy was not performed. Left 2nd PIPJ AP: Due to the length of the second toe decision was made to shorten the head of the proximal phalanx. Dissection was carried down, transverse tenotomy performed at the level of the PIPJ. The head of the proximal phalanx transected and a 0.06 smooth K wire was inserted and retrograded out the toe back toward the metatarsal head. Left Extensor Tendon Lengthening, 2-3: At this point there is some residual dorsiflexion noted at the level of the MPJs. Z-lengthening was performed of the extensor tendons on the second and third MPJs. Dorsal contracture was alleviated. 3-0 Vicryl was then used to repair the extensor tendon and over and over fashion with care not to contract it. Wound was flushed with copious muscle normal sterile saline. Left Anterior Tibial Tendon Debridement and Repair: Attention was directed back to the TA tendon which had a longitudinal tear about 3 cm long with some hard fibrotic scar tissue noted. It was repaired with 4-0 Pr olene and Vicryl in a running baseball fashion. Amniotic membrane graft was wrapped around the TA and PT tendons. 3-0 Vicryl was used to close subq layer in a running fashion. Then the skin was closed with 3-0 Nylon in interrupted fashion. Left Ankle Synovectomy: Attention was directed to the lateral ankle where an incision was made under the fibula extending over the lateral ankle. Dissection was carried down to the level of the joint. Early degenerative changes noted to the talus. Utilizing sharp and blunt dissection the synovitic tissue was debrided. The wound was then flushed with copious amounts of normal sterile saline. Left Modified Brostrum Lateral Ankle Ligament Stabilization: Intraoperative fluoroscopy was used to check talar tilt and anterior drawer. There was some instability noted. Incision was made over the ATFL. The ligament was intact but attenuated. 2-0 FiberWire was used to reapproximate the ligament. Peroneal tendons were identified and no tearing noted. Peroneal sheath repaired. The retinaculum was repaired over the ATFL. Intraoperative fluoroscopy utilized and talar tilt and anterior drawer with a negative. Final fixation position was checked on intra-op fluoro and deemed adequate and stable. The wounds were flushed with copious amounts of saline. The subq layer was closed with 3-0 Vicryl in an interrupted fashion. 3-0 Nylon was used to close the skin in interrupted fashion. Viaflow was inserted into the incisions. The tourniquet was deflated after 125 mins and immediate hyperemic response was noted to the digits. The wounds were cleansed. Masitol, 1/4" steri-strips were applied to posterior incisions. Betadine soaked 4x4s used to splint the 1-3rd toes in place. Xeroform, dry sterile dressing was then applied followed by a below knee posterior splint. The patient was awoken from anesthesia and transferred to recovery with vital signs stable and neurovascular status intact. Materials: [employer] Lapidus plate and 3.5mm locking screws x 3 [employer] Dartfire 4.0mm cannulated screw x 4 18mm Staple x 3 0.062 smooth K wire 2x3cm Amnio Biograft x 1 3cc Viaflow Discharge/Plan: D/C home tomorrow when ready and vital signs stable. Patient is to maintain posterior splint clean dry and intact. Ice behind the knee and elevate on two pillows. Non weight bearing to the right lower extremity with DME assistance (walker, r olling knee scooter). Rx for Ruffin 7.5, Zofran, Motrin, Lovenox 40mg #20. Obtain post op films, left foot and ankle, 3 views. Tourniquet time (min): 250 Condition: stable Disposition: observation Specimens:: Left posterior tibial tendon Complications:: None
[2019-01-04 06:14] LABS: Basophils % 0.1 % (0.1-2.0); Hematocrit 42.4 % (37.0-47.0); Hemoglobin 13.7 g/dL (12.2-16.2); Lymphocytes # 1.2 K/mm3 (0.7-4.5); Lymphocytes % 7.1 % (10-50); Mean Corpuscular HGB Conc 32.3 g/dL (31.8-35.4); Mean Corpuscular Volume 90.6 fl (81-99); Mean Platelet Volume 8.6 fl (7.4-10.4); Monocytes # 0.9 K/mm3 (0.1-1.0); Monocytes % 5.2 % (1.7-9.3); Neutrophils # 15.4 K/mm3 (1.8-7.8); Neutrophils % 87.6 % (37.0-80.0); Platelet Count 226 K/mm3 (142-424); Red Blood Count 4.67 M/mm3 (4.20-5.40); Red Cell Distribution Width 12.8 % (11.5-17.5); White Blood Count 17.5 K/mm3 (4.8-10.8)
[2019-01-04 07:12] LABS: Albumin Level 2.7 gm/dL (3.4-5.0); Albumin/Globulin Ratio 0.8 (1.1-1.8); Bilirubin,Total 0.7 mg/dL (0.2-1.0); Calcium 7.9 mg/dL (8.5-10.1); Globulin 3.4 gm/dl (1.3-3.2); Total Protein,Serum 6.1 gm/dL (6.4-8.2)
--- NOTE | 2019-01-04 07:30 | Pharmacy Consult Notes ---
[facility] Pharmacy VTE Monitoring - Patient Demographics Admission date: 01/03/19 Report Date: 01/04/19 Time: 07:29 Allergies/Adverse Reactions: Patient Allergies No Known Allergies Allergy (Verified 01/02/19 12:48) Height: 1.68 m Weight: 84.397 kg Patient Problems: Current Active Problems Osteoarthritis of left foot (Acute) Hallux valgus (acquired), left foot (Acute) Acquired hammertoe of left foot (Acute) Metatarsalgia, left foot (Acute) Traumatic rupture of left posterior tibial tendon (Acute) Nontraumatic rupture of left posterior tibial tendon (Acute) Traumatic rupture of left anterior tibial tendon (Acute) Gastrocnemius equinus of left lower extremity (Acute) Overweight (BMI 25.0-29.9) (Acute) - VTE Risk Labs: VTE Related Lab Results Hgb 13.7 g/dL (12.2-16.2) 01/04/19 05:55 Hct 42.4 % (37.0-47.0) 01/04/19 05:55 Plt Count 226 K/mm3 (142-424) 01/04/19 05:55 BUN 19 mg/dL (7-18) H 01/04/19 05:55 Creatinine 0.96 mg/dL (0.55-1.02) 01/04/19 05:55 Estimated Creat Clear 70 mL/min (50-200) 01/04/19 05:55 VTE Score: 6 VTE Risk Level: Moderate Risk - Prophylaxis VTE Prophylaxis Ordered?: Yes Types of VTE Prophylaxis: IPCS Thigh High, Pharmacological Location of Applied Device: Right Leg Pharmacologic Type: Enoxaparin - VTE Diagnosis Confirmed Treatment or plan recommended: Continue Current Treatment
[2019-01-04 08:29] LABS: Lymphocytes % 7 % (10-50); Monocytes % 5 % (2-9); Neutrophils % 84 % (42-76); Total Cells Counted 100
--- OUTSIDE RECORDS SUMMARY | 2019-01-04 14:18 | External Medical Summary | Continuity of Care Document ---
:1950 Author Organization [facility] Address [address] [address] [address] [place] [address] [phone] Phone Care Team Providers Name Role Phone Mavis Haq Attending Provider Provider, Referral Primary Care Provider Unavailable Chari Allen Primary Care Provider Allergies, Adverse Reactions, Alerts No known allergies. Medications Medication Status Dose Units Route Sig Qty Days Start End Instruct ions Date Date Levothyroxine Active 88 MCG Oral Daily July 192017 12:37pm Multivitamin Active 1 TAB Oral every July 19, morning 2017 12:37pm Nabumetone Active 750 MG Oral Twice a July 192017 12:37pm [place]-3 Fatty Active 1 CAP Oral Twice a July 19, Acids/Fish Oil 2017 12:37pm Omeprazole Active 20 MG Oral Daily July 19, 2017 12:37pm Vitamin B Active 1 TAB Oral Daily July 19, Complex 2017 12:37pm Vitamin E Active 800 UNIT Oral Daily July 19, (Dl,Tocopheryl 2018 Acet) 12:37pm Diclofenac Active 4 G Topical Four 19 September apply to Sodium times a , single knee , 2018 ankle, foot; 11:42am gently massage into area; for foot includes sole/toes/top of foot Ibuprofen Active 800 MG Oral Twice a 180 November 12:54pm Hydrocodone/Ac Active 1 TAB Oral EVERY 20 December etaminophen 4-6 2018 12:54pm Enoxaparin Active 40 MG SUBCUTANE Every 16.8 November Se lf inject Sodium OUS , one dose 2019 daily sub q 12:55pm Hydrochlorothi Active 25 MG Oral Daily September 2:45pm Ergocalciferol Active 91958 UNIT Oral every February (Vitamin D2) 2018 11:45am Ciprofloxacin Active 500 MG Oral Twice a December Hcl day 2018 8:28am Problems Active Problems Medical Problem Onset Date Status UTI (urinary tract infection) Active Hallux valgus (acquired), left foot Acti ve Metatarsalgia, left foot Active Traumatic rupture of left anterior Activ e tibial tendon Traumatic rupture of left posterior Acti ve tibial tendon Nontraumatic rupture of left Active posterior tibial tendon Gastrocnemius equinus of left lower Acti ve extremity Overweight (BMI 25.0-29.9) Active Acquired hammertoe of left foot Active Osteoarthritis of left foot Active Procedures Procedure Date Performed Status XR ankle LT min 3V January 03, 2019 completed XR foot LT min 3V January 03, 2019 completed XR foot LT 2V January 03, 2019 active Urine Culture January 03, 2019 active Lapidus (Left) January 03, 2019 8:58am completed January 03, 2019 7:30am completed January 03, 2019 7:30am completed XR chest 2V December 11, 2018 completed ECG initial Josh December 11, 2018 completed Relevant Diagnostic Tests and/or Laboratory Data Laboratory Results Test Date/Time Result Interpretation Reference Result Comment Performing Range Site White Blood November 6.8 K/mm3 4.8-10.[address] 36 E Count 2018 Abiodun MARQUEZ 31666 12:14pm White Blood December 17.5 K/mm3 4.8-10.[address] 36 E Count 2018 Abiodun MARQUEZ 92379 5:55am Red Blood November 5.28 M/mm3 4.20-5.[address] 36 E Count 2018 Abiodun MARQUEZ 55125 12:14pm Red Blood December 4.67 M/mm3 4.20-5.40 [place] [address] E Count 2018 Abiodun MARQUEZ 97847 5:55am Hemoglobin November 15.3 g/dL 12.2-16.2 [facility], [address] [place] [address] E 2018 Abiodun MARQUEZ 25072 12:14pm Hemoglobin November 13.7 g/dL 12.2-16.2 [facility], [address] [place] [address] E 2018 Abiodun MARQUEZ 33010 5:55am Hematocrit November 46.5 % 37.0-47.0 [facility], [address] [place] [address] E 2018 Abiodun MARQUEZ 61289 12:14pm Hematocrit December 42.4 % 37.0-47.0 [facility], [address] [place] [address] E 2018 Abiodun MARQUEZ 74436 5:55am Mean November 88.1 fl 81-99 [facility], [address] [place] [address] E Corpuscular 2018 Yesy MARQUEZ 89322 Volume 12:14pm Mean December 90.6 fl 81-99 [facility], [address] [place] [address] E Corpuscular 2018 Yesy MARQUEZ 47671 Volume 5:55am Mean November 29.0 pg 27.0-31.2 [facility], [address] [place] [address] E Corpuscular 2018 Yesy MARQUEZ 34807 Hemoglobin 12:14pm Mean December 29.2 pg 27.0-31.2 [facility], [address] [place] [address] E Corpuscular 2018 Yesy MARQUEZ 42201 Hemoglobin 5:55am Mean November 32.9 g/dL 31.8-35.4 [facility], [address] [place] [address] E Corpuscular 2018 Yesy MARQUEZ 53762 Hemoglobin 12:14pm Concent Mean December 32.3 g/dL 31.8-35.4 [facility], [address] [place] [address] E Corpuscular 2018 Yesy MARQUEZ 03529 Hemoglobin 5:55am Concent Red Cell November 12.9 % 11.5-17.5 [facility], [address] [place] [address] E Distribution 2018 Mileydwayne MARQUEZ 99327 Width 12:14pm Red Cell December 12.8 % 11.5-17.5 [facility], [address] [place] [address] 36 E Distribution 2018 Sulema Hutchins Width 5:55am Platelet November 262 K/mm3 142-424 [facility], [address] [place] [address] E Count 2018 Abiodun Hutchins 12:14pm Platelet December 226 K/mm3 142-424 [facility], [address] [place] [address] 36 E Count 2018 Abiodun Hutchins 5:55am Mean Platelet November 8.3 fl 7.4-10.4 [facility], [address] [place] [address] E Volume 2018 Abiodun Hutchins 12:14pm Mean Platelet December 8.6 fl 7.4-10.4 [facility], [address] [place] [address] E Volume 2018 Abiodun Hutchins 5:55am Neutrophils November 58.2 % 37.0-80.0 [facility], [address] [place] [address] E (%) (Auto) 2018 Kun Hutchins 12:14pm Neutrophils December 87.6 % 37.0-80.0 [place] [address] E (%) (Auto) 2018 Kun Hutchins 5:55am Lymphocytes November 31.0 % 10-50 [address] [place] [address] E (%) (Auto) 2018 Kun Hutchins 12:14pm Lymphocytes December 7.1 % 10-50 [address] [place] [address] E (%) (Auto) 2018 Kun Hutchins 5:55am Monocytes (%) October 7.5 % 1.7-9.3 [facility], [address] [place] [address] E (Auto) 2018 Abiodun Hutchins 12:14pm Monocytes (%) December 5.2 % 1.7-9.3 [facility], [address] [place] [address] E (Auto) 2018 Abiodun Hutchins 5:55am Eosinophils October 2.3 % 0.1-12.0 [place] [address] E (%) (Auto) 2018 Kun Wadsworth31 12:14pm Eosinophils November 0.0 % 0.1-12.0 [facility], [address] [place] [address] E (%) (Auto) 2018 Kun MARQUEZ 25849 5:55am Basophils (%) November 1.0 % 0.1-2.0 [facility], [address] [place] [address] E (Auto) 2018 Abiodun MARQUEZ 15248 12:14pm Basophils (%) December 0.1 % 0.1-2.0 [facility], [address] [place] [address] E (Auto) 2018 Abiodun MARQUEZ 64848 5:55am Neutrophils # November 4.0 K/mm3 1.8-7.8 [facility], [address] [place] [address] E (Auto) 2018 Abiodun MARQUEZ 04395 12:14pm Neutrophils # December 15.4 K/mm3 1.8-7.8 [facility], [address] [place] [address] E (Auto) 2018 Abiodun MARQUEZ 52083 5:55am Lymphocytes # November 2.1 K/mm3 0.7-4.5 [facility], [address] [place] [address] E (Auto) 2018 Abiodun MARQUEZ 46151 12:14pm Lymphocytes # December 1.2 K/mm3 0.7-4.5 [facility], [address] [place] [address] E (Auto) 2018 Abiodun MARQUEZ 24513 5:55am Monocytes # November 0.5 K/mm3 0.1-1.0 [facility], [address] [place] [address] E (Auto) 2018 [place] [address] 12:14pm Monocytes # December 0.9 K/mm3 0.1-1.0 [facility], [address] [place] [address] E (Auto) 2018 Abiodun MARQUEZ 69111 5:55am Eosinophils # November 0.2 K/mm3 0.0-0.4 [facility], [address] [place] [address] E (Auto) 2018 Abiodun MARQUEZ 94815 12:14pm Eosinophils # December 0.0 K/mm3 0.0-0.4 [facility], [address] [place] [address] E (Auto) 2018 Abiodun MARQUEZ 20994 5:55am Basophils # November 0.1 K/mm3 0-0.2 [facility], [address] [place] [address] E (Auto) 2018 Abiodun MARQUEZ 48002 12:14pm Basophils # November 0.0 K/mm3 0-0.2 [facility], [address] [place] [address] E (Auto) 2018 Abiodun MARQUEZ 67893 5:55am Differential December 100 [facility], [address] [place] [address] 36 E Total Cells 2018 Yesy MARQUEZ 65225 Counted 5:55am Neutrophils % December 84 % 42-76 [facility], [address] [place] [address] E (Manual) 2018 Abiodun Wadsworth31 5:55am Band November 3.0 0-8 [facility], [address] [place] [address] E Neutrophils % 2018 Amie Wadsworth31 5:55am Lymphocytes % December 7 % 10-50 [facility], [address] [place] [address] E (Manual) 2018 Abiodun Wadsworth31 5:55am Atypical November 1.0 [facility], [address] [place] [address] E Lymphocytes % 2018 Amie Hutchins 5:55am Monocytes % November 5 % 2-9 [facility], [address] [place] [address] E (Manual) 2018 Abiodun Wadsworth31 5:55am Platelet November Normal [facility], [address] [place] [address] E Estimate 2018 Abiodun Wadsworth31 5:55am Urine Color December Yellow Yellow [facility], [address] [place] [address] 36 E 2018 Abiodun Wadsworth31 8:35am Urine November Clear Clear [facility], [address] [place] [address] E Appearance 2018 Kun Hutchins 8:35am Urine pH December 7.0 5.0-8.5 [facility], [address] [place] [address] 36 E 2018 Abiodun Wadsworth31 8:35am Urine November 1.020 1.005-1.03 [facility], [address] [place] [address] E Specific 2018 0 Abiodun Wadsworth31 Clay 8:35am Urine Protein December Negative Negative [facility], [address] [place] [address] 36 E 2018 Abiodun Hutchins 8:35am Urine Glucose November Negative Negative [facility], [address] [place] [address] 36 E (UA) 2018 Abiodun MARQUEZ 00859 8:35am Urine Ketones November Negative Negative [facility], [address] [place] [address] 36 E 2018 Abiodun MARQUEZ 89911 8:35am Urine Blood November Trace-i Negative [facility], [address] [place] [address] 36 E 2018 bAiodun MARQUEZ 83985 8:35am Urine Nitrate November Positive Negative [facility], [address] [place] [address] 36 E 2018 Abiodun MARQUEZ 76465 8:35am Urine November Negative Negative [facility], [address] [place] [address] 36 E Bilirubin 2018 Abiodun Wadsworth31 8:35am Urine November 0.2 EU/dl [facility], [address] [place] [address] 36 E Urobilinogen 2018 Sulema MARQUEZ 50464 8:35am Urine November 2+ Negative [facility], [address] [place] [address] 36 E Leukocyte 2018 Abiodun Wadsworth31 Esterase 8:35am Urine RBC December 3-5 # /hpf [facility], [address] [place] [address] 36 E 2018 Abiodun MARQUEZ 29540 8:35am Urine WBC December 20-50 #/hpf [facility], [address] [place] [address] 36 E 2018 Abiodun MARQUEZ 76408 8:35am Urine November Occasional [facility], [address] [place] [address] 36 E Squamous 2018 #/hpf Abiodun MARQUEZ 54516 Epithelial 8:35am Cells Urine December 4+ /lpf None [facility], [address] [place] [address] 36 E Bacteria 2018 Abiodun MARQUEZ 26985 8:35am Sodium Level November 141 mmol/L 136-145 [facility], [address] [place] [address] 36 E 2018 Abiodun MARQUEZ 67337 12:14pm Sodium Level December 141 mmol/L 136-145 [facility], [address] [place] [address] 36 E 2018 Abiodun MARQUEZ 12418 5:55am Potassium November 4.0 mmoL/L 3.5-5.1 [facility], [address] [place] [address] 36 E Level 2018 Abiodun MARQUEZ 18485 12:14pm Potassium December 4.0 mmoL/L 3.5-5.1 [facility], [address] [place] [address] 36 E Level 2018 Abiodun MARQUEZ 98085 5:55am Chloride November 102 mmol/L 98-107 [facility], [address] [place] [address] E Level 2018 Abiodun MARQUEZ 51293 12:14pm Chloride December 105 mmol/L 98107 [facility], [address] [place] [address] E Level 2018 Abiodun MAQRUEZ 18551 5:55am Carbon November 34 mmol/L 21.0-32.0 [facility], [address] [place] [address] E Dioxide Level 2018 Amie MARQUEZ 98503 12:14pm Carbon December 31 mmol/L 21.0-32.0 [facility], [address] [place] [address] E Dioxide Level 2018 Amie MARQUEZ 17958 5:55am Anion Gap November 9.0 mEq/L 07-05 [facility], [address] [place] [address] E 2018 Abiodun MARQUEZ 19841 12:14pm Anion Gap December 9.0 mEq/L 07-05 [facility], [address] [place] [address] E 2018 Abiodun MARQUEZ 10115 5:55am Blood Urea November 15 mg/dL 09-07 [facility], [address] [place] [address] E Nitrogen 2018 Abiodun MARQUEZ 68605 12:14pm Blood Urea December 19 mg/dL 09-07 [facility], [address] [place] [address] E Nitrogen 2018 [place] [address] 5:55am Creatinine November 1.08 mg/dL 0.55-1.02 [facility], [address] [place] [address] 36 E 2018 [place] [address] 12:14pm Creatinine December 0.96 mg/dL 0.55-1.02 [facility], [address] [place] [address] 36 E 2018 [place] [address] 5:55am Estimated November 70 mL/min 0-300 [facility], [address] [place] [address] E Creatinine 2018 Kun MARQUEZ 81327 Clearance 5:55am Estimated GFR November 61 ML/MIN >59 [facility], [address] [place] [address] 36 E ( 2018 Abiodun ALMA 01882 Tanzanian) 12:14pm Estimated GFR December 70 ML/MIN >59 [facility], [address] [place] [address] 36 E ( 2018 [place] [address] [place]) 5:55am Estimat November 50 ml/min >59 [facility], [address] [place] [address] 36 E Glomerular 2018 Kun MARQUEZ 94951 Filtration 12:14pm Rate Estimat December 57 ml/min >59 [facility], [address] [place] [address] 36 E Glomerular 2018 Kun MARQUEZ 06578 Filtration 5:55am Rate Glucose Level November 89 mg/dL 74-106 [facility], [address] [place] [address] 36 E 2018 Abiodun MARQUEZ 68039 12:14pm Glucose Level December 133 mg/dL 74-106 [facility], [address] [place] [address] 36 E 2018 Abiodun MARQUEZ 26927 5:55am Hemoglobin December 5.6 % 0.0-7.0 < 6% [facility], [address] [place] [address] 36 E A1c 2018 Non-Diabetic Sulema MARQUEZ 77399 5:55am Level< 7% Controlled Diabetic Level> 8% Poorly Controlled Diabetic Level Calcium Level November 9.6 mg/dL 8.5-10.1 [facility], [address] [place] [address] 36 E 2018 Abiodun MARQUEZ 13202 12:14pm Calcium Level December 7.9 mg/dL 8.5-10.1 [facility], [address] [place] [address] 36 E 2018 Abiodun MARQUEZ 74954 5:55am Total November 0.8 mg/dL 0.2-1.0 [facility], [address] [place] [address] 36 E Bilirubin 2018 Abiodun MARQUEZ 25575 12:14pm Total December 0.7 mg/dL 0.2-1.0 [facility], [address] [place] [address] 36 E Bilirubin 2018 Abiodun MARQUEZ 96468 5:55am Aspartate November 30 U/L [facility], [address] [place] [address] 36 E Amino Transf 2018 Sulema MARQUEZ 94111 (AST/SGOT) 12:14pm Aspartate December 24 U/L [facility], [address] [place] [address] 36 E Amino Transf 2018 Sulema MARQUEZ 76149 (AST/SGOT) 5:55am Alanine November 36 U/L [facility], [address] [place] [address] 36 E Aminotransfer 2018 Amie MARQUEZ 99699 ase 12:14pm (ALT/SGPT) Alanine January 17 U/L [facility], [address] [place] [address] 36 E Aminotransfer 2018 Amie MARQUEZ 69546 ase 5:55am (ALT/SGPT) Total Protein November 7.1 gm/dL 6.4-8.2 [facility], [address] [place] [address] 36 E 2018 Abiodun MARQUEZ 27091 12:14pm Total Protein December 6.1 gm/dL 6.4-8.2 [facility], [address] [place] [address] 36 E 2018 Abiodun MARQUEZ 37350 5:55am Albumin October 3.6 gm/dL 3.4-5.0 [facility], [address] [place] [address] 36 E 2018 Abiodun MARQUEZ 11881 12:14pm Albumin November 2.7 gm/dL 3.4-5.0 [facility], [address] [place] [address] 36 E 2018 Abiodun MARQUEZ 06470 5:55am Globulin November 3.5 gm/dl 1.3-3.2 [facility], [address] [place] [address] 36 E 2018 Abiodun MRAQUEZ 28716 12:14pm Globulin November 3.4 gm/dl 1.3-3.2 [facility], [address] [place] [address] 36 E 2018 Abiodun MARQUEZ 17405 5:55am Albumin/Globu October 1.0 1.1-1.8 [facility], [address] [place] [address] 36 E glen Ratio 2018 Abiodun MARQUEZ 18236 12:14pm Albumin/Globu November 0.8 1.1-1.8 [facility], [address] [place] [address] 36 E glen Ratio 2018 Abiodun MARQUEZ 72124 5:55am Alkaline November 77 U/L 46-116 [facility], [address] [place] [address] 36 E Phosphatase 2018 Yesy velasco ALMA 84009 12:14pm Alkaline November 59 U/L 46-116 [facility], [facility] 36 E Phosphatase 2018 [place] [address] 5:55am 25-Hydroxy November 64.4 ng/mL Vitamin D [facility] Vitamin D 2018 deficiency has Acct # Total 12:14pm been defined by [id number] the [place] [facility] and an Endocrine Society practice guideline as alevel of serum 25-OH vitamin D less than 20 ng/mL (1,2).The Endocrine Society went on to further define vitamin Dinsufficiency as a level between 21 and 29 ng/mL (2).1. IOM ([place] of Medicine). 2010. Dietary reference intakes for calcium and D. [place]: The National Academies Press.2. Jocelynn MF, [place], Sintia gonzales BUCKNER, et al. Evaluation, treatment, and prevention of vitamin D deficiency: an Endocrine Society clinical practice guideline. JCEM. 2010; 96(7):1911-30.P erformed at: - [facility] [address] Director: Antony Joseph PhD, Phone: [phone] Diagnostic Imaging Reports Report Dictated Date/Time Dictated By Status Radiology Report December 11, 2018 Renny Zamarripa MD completed 12:53pm [address] [place] [id number] XRay R eport Sig grey Patient: Irene Ramirez MR#: [id number] : 1950 Acct:[id number] Age/Sex: 68 / F ADM Date: 9 Loc: RAD Attending Dr: Mavis Haq DPRyan Ordering Physician: Mavis Haq DPM Date of Service: 12/11/18 Procedure(s): XR chest 2V Accession Number(s): [id number] cc: Renny Zamarripa MD; Chari Allen APRN ~ PROCEDURE: XR CHEST 2V CLINICAL HISTORY: HTN, PRE OP COMPARISON: CXR2V XR chest 2V from FINDINGS: The cardiomediastinal silhouette and pu lmonary vascularity are within normal limits. Hiatal hernia is present. Lungs are ot herwise clear. There is some hyperinflation with increased AP diamet er of the chest suggesting COPD. Mild degenerative changes thoracic spin e. There is scoliosis of the lumbar spine convex left. IMPRESSION: Hiatal hernia with COPD Dictated by: Renny Zamarripa MD 12/11/2018 13:00 Electronically signed by Renny Zamarripa in [place] 12/11/2018 13:00 Radiology Report January 03, 2019 Renny Zamarripa MD completed 3:27pm [facility] [address] [place] [id number] XRay R eport Sig grey Patient: Irene Ramirez MR#: [id number] : 1950 Acct:[id number] Age/Sex: 68 / F ADM Date: 9 Loc: 213-[address]: Mavis Haq DPM Ordering Physician: Mavis Haq DPM Date of Service: 01/03/19 Procedure(s): XR ankle LT min 3V Accession Number(s): [id number] cc: Renny Zamarripa MD; Chari Allen APRN ~ PROCEDURE: XR ANKLE LT MIN 3V CLINICAL INDICATION: post op Follow-up arthrodesis COMPARISON: XR FOOT LT MIN 3V from FINDINGS: There is a posterior splint in place. There has been arthrodesis of the the 1st 2nd and 3rd metatarsal tars al joints, the navicular cuneiform joint with dorsal duong at the 2nd and 3rd metatarsal tarsal joint and the navicular/2nd cune iform joint with a bone plate at the 1st metatarsal tarsal joint the and screws through the 1st cuneiform navicular region and 1st cune iform first metatarsal and a screw angled from the navicular to the head of the 2nd metatarsal. There does appear to be good alignment. A pin is placed through the distal aspect of the 2nd toe to the hea d of the 2nd metatarsal. The IMPRESSION: Status post midfoot fusion as described above as well as pin placement through the 2nd toe Dictated by: Renny Zamarripa MD 01/03/2019 16:21 Electronically signed by Renny Zamarripa in [place] 01/03/2019 16:21 Radiology Report January 03, 2019 Renny Zamarripa MD completed 3:27pm [facility] [address] [facility] [address] [place] [id number] XRay R eport Sig grey Patient: Irene Ramirez MR#: [id number] : 1950 Acct:[id number] Age/Sex: 68 / F ADM Date: 9 Loc: [address] [place] [address]: aMvis Haq DPM Ordering Physician: Mavis Haq DPM Date of Service: 01/03/19 Procedure(s): XR foot LT min 3V Accession Number(s): [id number] cc: Renny Zamarripa MD; Chari Allen APRN ~ PROCEDURE: XR ANKLE LT MIN 3V CLINICAL INDICATION: post op Follow-up arthrodesis COMPARISON: XR FOOT LT MIN 3V from FINDINGS: There is a posterior splint in place. There has been arthrodesis of the the 1st 2nd and 3rd metatarsal tars al joints, the navicular cuneiform joint with dorsal duong at the 2nd and 3rd metatarsal tarsal joint and the navicular/2nd cune iform joint with a bone plate at the 1st metatarsal tarsal joint the and screws through the 1st cuneiform navicular region and 1st cune iform first metatarsal and a screw angled from the navicular to the head of the 2nd metatarsal. There does appear to be good alignment. A pin is placed through the distal aspect of the 2nd toe to the hea d of the 2nd metatarsal. The IMPRESSION: Status post midfoot fusion as described above as well as pin placement through the 2nd toe Dictated by: Renny Zamarriap MD 01/03/2019 16:21 Electronically signed by Renny Zamarripa in [place] 01/03/2019 16:21 Health Concerns Concerns pain control Advance Directives Advance Directive Response Recorded Date/Time Living Will No January 03, 2019 4:10pm Chief Complaint and Reason for Visit Chief Complaint pre-op visit cxr, ekg, labs OR Reason for Visit Acquired hammertoe of left f oot Gastrocnemius equinus of lef t lower extremity Hallux valgus (acquired), le ft foot Metatarsalgia, left foot Nontraumatic rupture of left posterior tibial tendon Osteoarthritis of left foot Overweight (BMI 25.0-29.9) Traumatic rupture of left an terior tibial tendon Traumatic rupture of left po sterior tibial tendon UTI (urinary tract infection ) Encounters Encounter Location(s) Arrival/Admit Date Discharge/Depart Date Provider(s) Departed [facility] Physician December 11, 2018 December 11, 2018 Soumya Haq , Physician/[facility]vi Group-Podiatry 10:57am 12:49pm DPM lefty Office Clinic [facility] Visit Registered [facility] Physician December 11, 2018 Mavis naqvi , Clinical Group-Radiology 11:59am DPM Discharged [facility] Physician January 03, January 04, 2019 Mavis Haq , Inpatient Group-Second 2018 6:14am 10:35am DPM Floor Registered [facility] Physician January 04, Mavis Haq Inpatient Group- 2018 2:15pm DPM Recent Diagnosis Onset Date Acquired hammertoe of left foot Gastrocnemius equinus of left lower extremity Hallux valgus (acquired), left foot Metatarsalgia, left foot Nontraumatic rupture of left posterior tibial tendon Osteoarthritis of left foot Overweight (BMI 25.0-29.9) Traumatic rupture of left anterior tibial tendon Traumatic rupture of left posterior tibial tendon UTI (urinary tract infection) Assessments See care plan goals Functional Status Observation Response Date Recorded Oral Care Ability Independent January 03, 2019 4:04pm Bathing Ability Independent January 03, 2019 4:04pm Eating (Feeding) Ability Independent January 03, 2019 4:04pm Toileting Ability Independent January 03, 2019 4:04pm Ambulation Ability Independent January 04, 2019 10:56am Functional status ambulatory December 11, 2018 1 2:53pm Goals Acute Goals Nursing Diagnosis: Knowledge Deficit D isease/Condition Goal(s): Education of di sease process Instruction(s): Follow provider p ericka/instructions (See attached discharge education) Follow/up with primary care provider as instructed in discharge packet Ambulatory Goals Patient verbalizes understanding of dise ase process. Patient to follow plan of care. Education provided. Immunizations Immunization Event Date Not Given Dose Factory Worker Lot Vac cine Reason Number Number Informatio n Statement (VIS) Deta il Fluzone December High-Dose 65YR+ 2013 Fluzone December High-Dose 65YR+ 2014 Fluzone Quad March 6mo+ 2016 Fluzone Quad December [id number] 6mo+ 2018 Pneumococcal September 17, Conjugate 2015 Vaccine, 13 valent Pneumococcal June 25, Polysacc. 2014 Vaccine, 23 valent Pneumococcal September 12, Polysacc. 2018 Vaccine, 23 valent Mental Status Observation Response Date Recorded Comprehension Ability No Impairment January 03 9 4:04pm Able to Read Yes January 03, 2019 4:04pm Able to Write Yes January 03, 2019 4:04pm Ability to Follow Directions Good January 032018 4:04pm Oral Expression Ability No Impairment January 03 019 4:04pm Medical Equipment Implanted Devices Device Date Implanted GENTRY Number ACTISHIELD AMNIO BARRIER February 24, 2018 AMNIOBIOGRAFT 3 X 4 CM February 24, 2018 FUSEFORCE STAPLE [id number] February 24, 2018 MEDIAL COLUMN PLATE February 24, 2018 NON LOCK SCREW 3.5X16MM February 24, 2018 SCREW 2.7 X 14MM [id number] February 24, 2018 SCREW 2.7 X 16MM [id number] February 24, 2018 SCREW 4.0 X 24MM [id number] February 24, 2018 SCREW 4.0X44MM [id number] February 24, 2018 SCREW LK 2.7X12MM [id number] February 24, 2018 SCREW LOCK 3.5 X 14 MM February 24, 2018 SCREW LOCK 3.5 X 14 MM February 24, 2018 SCREW LOCK 3.5 X 16 MM February 24, 2018 SCREW LOCK 3.5 X 16 MM February 24, 2018 TENSIX DBM 2.5CC [id number] February 24, 2018 VIAFLOW PLACENTAL TISSUE February 24, 2018 Insurance Providers Guarantor Irene Ramirez Address [address] [place] [address] [place] [phone] Contact Info. Home Phone: Payer Policy Id Coverage Id Subscriber's Subscriber Effective Expi ration Name Id Date Date Self Pay Self N/A [place] [id number] Irene [id number] [facility] Plan of Treatment Follow up as ordered by PCP Onychomycosis, topical treatment: Discussed the etiology and condition with the patient. Discussed topical and oral treatments for this condition. An e-prescription was given for [place] Nail Lacquer for patient to apply to all nails daily. Patient is to apply to all nails for 7 days. At the end of the 7th day they should remove the nail hong konger with nail hong konger remover and start the application process. Recommend using petar board or Dremel to smooth down the nail thickness. Results will not show for 3-4 months. Patient understands it takes 10-12 months for a nail to completely grow out. ankle LT wo/w con, 09/18/18: IMPRESSION: 1. Suspect small split tear of the proximal aspect of the posterior tibialis tendon with tenosynovitis of the tendon sheath proximally. Increased T2 signal on the sagittal images of the distal aspect of the posterior tibialis which may be magic angle artifact. Cannot exclude partial tear/tendinosis. 2. 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 3. Tenosynovitis of the anterior tibialis tendon. 4. Soft tissue swelling lung medial aspect of the ankle with ankle joint effusions. MRI reviewed and evaluated by myself. Report noted as above. Images were then reviewed shown and discussed with the patient and her . We discussed conservative care including: Immobilization, lace up ankle stability brace, fracture boot, ice, elevation, NSAIDs. After a long discussion with the patient in regards to the conservative versus surgical treatment for the tendon tear, flat foot, bunion and arthritic deformity, the patient has elected to proceed with surgery because they have failed conservative treatment and continue to have pain and worsening symptoms affecting daily activities. We discussed surgical intervention including repair of the PT tendon, debridement and repair of the tibialis anterior tendon as well as lateral ankle stabilization/repair. Patient requesting both surgeries to be done at the same time. We discussed that all procedures can be done together however that would make for longer anesthesia time. I recommend 23-hour observation and IV antibiotic use due to the increased length of case and anesthesia. Patient and her are in agreement. The patient has been instructed on the planned procedure, all risk versus benefits of the procedure discussed. These include but are not limited to: bleeding, infection, nerve and blood vessel damage, need for further surgery, delay in healing of soft tissue or bone, failure of bones to heal, non-union, mal-union, failure of the implant, prolonged pain and recovery, CPRS/RSD, DVT and anesthetic complications. No guarantees were given. All questions fully answered. The patient verbalized understanding and agreed to proceed with surgery. Written consent was obtained. Necessary labs and pre-op testing ordered: CBC, CMP, CXR, EKG, vit D. Medical clearance granted by her PCP, Dr. Viera in November. Plan to keep 23 hrs observation. e-Rx for [place] 7.5mg # 28, Zofran 4mg # 30, Motrin 800mg # 60, Lovenox 40 x 6 weeks given. Plan for Wednesday 12/27 or 01/03/2019: 1. Left posterior tibial tendon debridement and repair 2. Left possible PT to FDL tendon transfer 3. Left lateral ankle stabilization/ligament repair 4. Left ankle synovectomy 5. Left anterior tibial tendon debridement and repair 6. Left Lapidus bunionectomy 7. Left navicular cuneiform arthrodesis 8. Left tarsometatarsal arthrodesis, 2-3 9. Left tendo Achilles lengthening 10. Left second, third metatarsal phalangeal joint releases 11. Left extensor tendon lengthening, 2-3 12. Left possible bone cyst 1st metatarsal curettage and graft Future Tests Future scheduled test information is unavailable Pending Tests Pending diagnostic test information is unavailable Future Visits Future appointment information is unavailable Referrals to Other Providers Reason for Referral Start Provider Provider Contact Provider Address Referral Date Information Admission to [facility] January [address] [place] [address] Future Procedures Future procedure information is unavailable Future Medications Future medication information is unavailable Patient Instructions Balanced Diet DI for Dependent Edema Bunion Removal DI for Arthrodesis of the Ankle DI for Urinary Tract Infection (UTI) DI for Surgical Site Infection Social History Assigned Sex Female Vital Signs Vital Reading Result Reference Range Collection Date/ Time Height 165.1 cm December 11 11:13am Weight 76.20 kg December 11 11:13am Heart Rate 70 /min 60-December 11 11:13am BP Systolic 160 mm[Hg] 110-140 December 11 11:13am BP Diastolic 81 mm[Hg] 60-90 December 11 11:13am BMI (Body Mass Index) 27.9 kg/m2 December 112018 11:13am Height 167.64 cm January 03, 2 019 6:22am Weight 84.39 kg January 03 2 019 6:22am Body Temperature 98.1 [degF] 97.6-99.6 January 04, 2019 7:55am Heart Rate 87 /min -January 04 2 019 7:55am Respiratory rate 17 /min 12-January 04, 2019 7:55am Oxygen saturation by 97 % 95-100 January 042018 Pulse oximetry 7:55am BP Systolic 130 mm[Hg] 110-140 January 04 2 019 7:55am BP Diastolic 69 mm[Hg] 60-90 January 04, 2 019 7:55am BMI (Body Mass Index) 30.0 kg/m2 December 222018 6:22am Inhaled oxygen 28 % January 04, 2 019 concentration 12:00am
== END 2019-01-04 10:35 | disposition home or self-care (01) ==
LOC: OR 06:07 → 2ND 06:07
PROVIDERS: ADMIT Podiatrist; ATTEND Podiatrist
CPT/HCPCS: 36415; 73610; 73620; 73630; 80053; 81001; 83036; 85007; 85025; 87086; 87088; 87186; 88304; 90686; 94761; 96374; 97161; C1713; C1762; C1776; G0238; G0378; J2405

== ENCOUNTER → 2019-01-22 12:17 | Outpatient (CLI) | payer MEDICARE, SELFPAY ==
--- NOTE | 2019-01-22 12:24 | XR_ITS ---
PROCEDURE: XR FOOT WT BEARING LT 3V CLINICAL INDICATION: postop views Follow-up fusion COMPARISON: [id number] XR foot wt bearing LT 3V from 04/12/2018 [id number] XR foot wt bearing RT 3V from 05/11/2018 [id number] XR foot wt bearing RT 3V from 06/06/2018 XR FOOT LT MIN 3V from 01/03/2019 FINDINGS: Extensive postsurgical changes of the midfoot with fusion the navicular cuneiform joint as well as 1st 3 3rd metatarsals as previously described with no change in bony alignment and no detected change in the hardware. A pin remains in place through the 2nd phalanx into the head of the 2nd metatarsal. A splint remains in place. There is an irregular lucency through the proximal aspect of the 1st metatarsal. This may be related to a defect in the cast. Follow-up suggested to exclude the possibility of a nondisplaced fracture. IMPRESSION: No change status post midfoot fusion as described above. Longitudinal lucency at the base of the 1st metatarsal possibly related to the cast Dictated by: Renny Zamarripa MD 01/22/2019 12:58 Electronically signed by Renny Zamarripa MD in [place] 01/22/2019 12:58
== END ==
PROVIDERS: Visit Provider Podiatrist
DX: Z98.890 Other specified postprocedural states (principal); S86.112D Strain of other muscle(s) and tendon(s) of posterior muscle group at lower leg level, left leg, subsequent encounter; S93.402D Sprain of unspecified ligament of left ankle, subsequent encounter
CPT/HCPCS: 73630

== ENCOUNTER → 2019-02-12 13:13 | Outpatient (CLI) | payer MEDICARE, SELFPAY ==
--- NOTE | 2019-02-12 13:20 | XR_ITS ---
PROCEDURE: XR FOOT WT BEARING LT 3V CLINICAL INDICATION: post-op COMPARISON: [id number] XR foot wt bearing RT 3V from 05/11/2018 [id number] XR foot wt bearing RT 3V from 06/06/2018 XR FOOT LT MIN 3V from 01/03/2019 XR FOOT WT BEARING LT 3V from 01/22/2019 FINDINGS: The cast has been removed. Orthopedic hardware appears to be intact. Bone density is stable and normal. Soft tissues are otherwise unremarkable. IMPRESSION: Cast has been removed. No acute process. Dictated by: Jesus Burnette 02/12/2019 14:59 Electronically signed by Jesus Burnetet in [place] 02/12/2019 14:59
--- NOTE | 2019-02-12 13:35 | XR_ITS ---
PROCEDURE: XR ANKLE WT BEARING LT MIN 3V CLINICAL INDICATION: status postop COMPARISON: No exams were available for comparison FINDINGS: There is perhaps mild narrowing of the anterior aspect of the tibiotalar joint without erosions or spurs. There is mild generalized osteopenia. There is orthopedic hardware involving the tarsal area. Soft tissues are otherwise unremarkable and there is no acute fracture. IMPRESSION: Probable mild arthritic change involving the anterior aspect of the tibiotalar joint. No acute process. Dictated by: Jesus Burnette 02/12/2019 18:33 Electronically signed by Jesus Burnette in [place] 02/12/2019 18:33
== END ==
PROVIDERS: PCP Nurse Practitioner; Visit Provider Podiatrist
DX: Z98.890 Other specified postprocedural states (principal); S86.112D Strain of other muscle(s) and tendon(s) of posterior muscle group at lower leg level, left leg, subsequent encounter
CPT/HCPCS: 73610; 73630

== ENCOUNTER → 2019-07-05 13:46 | Outpatient (CLI) | payer MEDICARE, SELFPAY ==
--- NOTE | 2019-07-05 13:52 | XR_ITS ---
PROCEDURE: XR FOOT WT BEARING LT 3V CLINICAL INDICATION: bilateral pes planus COMPARISON: [id number] XR foot wt bearing RT 3V from 06/06/2018 XR FOOT LT MIN 3V from 01/03/2019 XR FOOT WT BEARING LT 3V from 01/22/2019 XR FOOT WT BEARING LT 3V from 02/12/2019 FINDINGS: There is moderate hallux valgus with also valgus angulation of the 2nd 3rd and 4th proximal phalanges. Osteoarthritic change 1st MTP joint with prior bunionectomy at the distal aspect of the 1st metatarsal noted. Prior midfoot fusion with good alignment. Pes planus is present and may be slightly worse. IMPRESSION: Postsurgical change with hallux valgus and pes planus Dictated by: Renny Zamarripa MD 07/05/2019 16:11 Electronically signed by Renny Zamarripa MD in [place] 07/05/2019 16:11
--- NOTE | 2019-07-05 13:52 | XR_ITS ---
PROCEDURE: XR FOOT WT BEARING RT 3V CLINICAL INDICATION: bilateral pes planus Follow-up surgery, pes planus COMPARISON: [id number] XR foot wt bearing RT 3V from 06/06/2018 XR FOOT LT MIN 3V from 01/03/2019 XR FOOT WT BEARING LT 3V from 01/22/2019 XR FOOT WT BEARING LT 3V from 02/12/2019 FINDINGS: There is moderate pes planus slightly worse when compared to 06/06/2018. Osteoarthritic changes are present at the 1st MTP joint. There appears to been a prior bunionectomy at the distal aspect of the 1st metatarsal. There has been prior fusion of the midfoot with a medial bone plate at the 1st metatarsal, medial cuneiform, navicular junction with transverse screw at the base of the 1st and 2nd metatarsal and an additional oblique screw from the navicular into the mid cuneiform and base of the 3rd metatarsal. A dorsal lateral clip is present at the navicular mid cuneiform junction. Hypertrophic changes are present at the dorsal aspect of the talonavicular joint. Other findings:There is also valgus angulation of the 2nd 3rd and 4th proximal phalanges which has also increased. IMPRESSION: Progression of hallux valgus with osteoarthritic change of the 1st MTP joint with some increase in valgus angulation of the proximal phalanx of the 2nd 3rd and 4th digits. Prior midfoot fusion unchanged. Dictated by: Renny Zamarripa MD 07/05/2019 16:09 Electronically signed by Renny Zamarripa MD in [place] 07/05/2019 16:12
== END ==
PROVIDERS: Visit Provider Podiatrist
DX: M21.41 Flat foot [pes planus] (acquired), right foot (principal); M21.42 Flat foot [pes planus] (acquired), left foot
CPT/HCPCS: 73630

== ENCOUNTER → 2019-11-29 15:08 | Outpatient (CLI) | payer MEDICARE, SELFPAY ==
--- NOTE | 2019-11-29 15:25 | XR_ITS ---
PROCEDURE: XR FOOT WT BEARING LT 3V CLINICAL INDICATION: LT HAMMERTOE,MPJ COMPARISON: CR XR FOOT WT BEARING LT 3V from 01/22/2019 CR XR FOOT WT BEARING LT 3V from 02/12/2019 CR XR FOOT WT BEARING LT 3V from 07/05/2019 CR XR FOOT WT BEARING RT 3V from 07/05/2019 FINDINGS: Status post extensive foot surgery as previously described. No change in the hardware from the prior midfoot fusion. There is persistent joint space noted at the navicular cuneiform joint. There is hallux valgus with osteoarthritis at the 1st MTP joint as well as valgus angulation of the proximal 2nd and 3rd phalanges. Hammertoe deformity noted of the 3rd toe. IMPRESSION: No change extensive postsurgical changes with hallux valgus Dictated by: Renny Zamarripa MD 11/29/2019 16:18 Renny Zamarripa MD in [place] 11/29/2019 16:18
--- NOTE | 2019-11-29 15:25 | XR_ITS ---
PROCEDURE: XR CHEST 2V CLINICAL HISTORY: SOB,PRE OP COMPARISON: CR CXR2V XR chest 2V from 02/16/2018 CR XR CHEST 2V from 12/11/2018 FINDINGS: The cardiomediastinal silhouette and pulmonary vascularity are within normal limits. The lungs are clear without infiltrates, suspicious nodules, or pleural effusions. There is a hiatal hernia present. Kyphosis noted in the thoracic spine with degenerative changes in the lower thoracic spine. IMPRESSION: No acute findings. Dictated by: Renny Zamarripa MD 11/29/2019 16:20 Renny Zamarripa MD in [place] 11/29/2019 16:20
[2019-11-29 15:46] LABS: Basophils # 0.1 K/mm3 (0-0.2); Basophils % 0.7 % (0.1-2.0); Eosinophils # 0.2 K/mm3 (0.0-0.4); Eosinophils % 1.9 % (0.1-12.0); Hematocrit 52.2 % (37.0-47.0); Hemoglobin 15.9 g/dL (12.2-16.2); Lymphocytes # 2.4 K/mm3 (0.7-4.5); Mean Corpuscular HGB Conc 30.4 g/dL (31.8-35.4); Mean Corpuscular Hemoglobin 26.6 pg (27.0-31.2); Mean Corpuscular Volume 87.2 fl (81-99); Mean Platelet Volume 7.9 fl (7.4-10.4); Monocytes # 0.5 K/mm3 (0.1-1.0); Monocytes % 6.5 % (1.7-9.3); Neutrophils # 5.2 K/mm3 (1.8-7.8); Neutrophils % 61.8 % (37.0-80.0); Platelet Count 285 K/mm3 (142-424); Red Blood Count 5.99 M/mm3 (4.20-5.40); Red Cell Distribution Width 12.7 % (11.5-17.5); White Blood Count 8.3 K/mm3 (4.8-10.8)
[2019-11-29 17:36] LABS: Chloride 97 mmol/L (98-107); Sodium 140 mmol/L (136-145)
[2019-11-29 17:37] LABS: Potassium 3.7 mmoL/L (3.5-5.1)
[2019-11-29 17:39] LABS: Alanine Aminotransferase 32 U/L (12-78); Alkaline Phosphatase 76 U/L (38-126); Anion Gap 13.7 mEq/L (5-15); Aspartate Amino Transferase 51 U/L (14-36); Bilirubin,Total 0.9 mg/dl (0.2-1.3); Blood Urea Nitrogen 13 mg/dl (7-17); Carbon Dioxide 33 mmol/L (22.0-30.0); Estimated Glomerular Filt Rate 71 ml/min (>60); GFR (African American) 86 ML/MIN (>60)
[2019-11-29 17:40] LABS: Albumin Level 4.4 g/dl (3.5-5.0); Albumin/Globulin Ratio 1.4 (1.1-1.8); Calcium 9.7 mg/dl (8.4-10.2); Globulin 3.1 g/dL (1.3-3.2); Glucose 89 mg/dl (74-100); Total Protein,Serum 7.5 g/dl (6.3-8.2)
[2019-11-29 17:55] LABS: 25-OH Vitamin D, Total 74.8 ng/mL (30-100)
== END ==
PROVIDERS: Visit Provider Podiatrist
DX: Z01.818 Encounter for other preprocedural examination (principal); M20.42 Other hammer toe(s) (acquired), left foot; M20.12 Hallux valgus (acquired), left foot; M77.52 Other enthesopathy of left foot and ankle; M19.072 Primary osteoarthritis, left ankle and foot; M81.0 Age-related osteoporosis without current pathological fracture
CPT/HCPCS: 36415; 71046; 73630; 80053; 82306; 85025

== ENCOUNTER 2019-12-12 07:11 | Day surgery (SDC) | payer MEDICARE, SELFPAY ==
[2019-12-10 14:55] VITALS: BMI 26.6
[2019-12-12] VITALS (12 sets, daily range): BP systolic 133–169; BP diastolic 56–99; PULSE 77–89; RESP 13–20; TEMP 36.2–36.8; O2SAT 94–100
--- NOTE | 2019-12-12 07:45 | ECG_ITS ---
APPROVED REPORT Exam: Resting ECG HR:93 bpm ECG Measurements Heart Rate 93 AXES WA 150 P 57 QRSd 64 QRS 9 QT 370 T 56 QTc 460 Conclusion Normal sinus rhythm Nonspecific ST abnormality Abnormal ECG Electronically signed by : Juan Jose Moreno, 12/24/2019 16:33:24
--- NOTE | 2019-12-12 08:06 | P.PN_ITS ---
[facility] Anesthesia Checklist - Structural Data Admitted From: Home Planned Operative Procedure/s: l hammer toe repair Consent for Planned Operative Procedure(s) Verified: Yes - Additional verifications Anesthesia Reactions: No Hx Blood Transfusions: No Blood Transfusion Reaction: No - Airway Assessment C-Spine Mobility Assessed: Yes TMJ Mobility Assessed: Yes Dentition: Good Dentition - Neurological Assessment Level of Consciousness: Awake, Alert, Appropriate - Anesthesia Plan Anesthesia Risk discussed: Yes Anesthesia Plan: Verified ASA Class: II Anesthesia Type: General w/block [facility] History I have reviewed the patient's past medical history: Yes Medical History: Reports:: Gastroesophageal Reflux Disease(GERD), Hypertension, Osteoporosis Denies:: Cancer, Diabetes Mellitus Type 1, Diabetes Mellitus Type 2, Internal Pacemaker, MRSA, Seizures *Have you ever received a pneumonia vaccine?: No *Have you received a flu vaccine this season?: Yes Other Medical History: Reports: Arthritis, Hypothyroidism, Osteoporosis, Thyroid Disease (Thyroiditis). Denies: Blood Transfusion Reaction Anesthesia experience/problems:: none Laterality Cases: Bilateral: Tonsillectomy Other Surgeries: Yes: No Previous Surgery, Other. No: Pacemaker Amputation: No Fractures: No - *Social History Last grade of school completed: Advanced degree Smoking Status: Never smoker Alcohol Intake: never Alcohol Intake Frequency:: other Substance Use Type: denies use *Occupational Status:: retired Housing: house Household Members: spouse *Travel in the last 8 weeks: None Family Hx:: Cancer, Coronary Artery Disease, Heart Attack, Stroke
[2019-12-12 08:37] LABS: Coronavirus 19 IgG Antibody Negative (Negative); Coronavirus 19 IgM Antibody Negative (Negative)
--- NOTE | 2019-12-12 11:00 | XR_ITS ---
PROCEDURE: XR FOOT LT MIN 3V CLINICAL INDICATION: Left post op HT COMPARISON: CR XR FOOT WT BEARING RT 3V from 07/05/2019 CR XR FOOT WT BEARING LT 3V from 07/05/2019 CR XR FOOT WT BEARING LT 3V from 11/29/2019 CR XR FOOT LT 2V from 12/12/2019 FINDINGS: There has been pinning of the 2nd 3rd 4th and 5th phalanges which are poorly demonstrated due to overlying cast. There is a screw in the head of the 2nd and 3rd metatarsal as well as a staple in the medial aspect of the proximal phalanx of the great toe. There has been prior fusion of the midfoot. Other findings:None. IMPRESSION: There postsurgical changes as described above. Posterior splint is present. The phalanges are not well delineated. Please see above for detail Dictated by: Renny Zamarripa MD 12/12/2019 12:51 Renny Zamarripa MD in [place] 12/12/2019 12:51
--- NOTE | 2019-12-12 12:05 | XR_ITS ---
PROCEDURE: XR FOOT LT 2V CLINICAL INDICATION: HAMMERTOE RECONSTRUCTION COMPARISON: CR XR FOOT WT BEARING LT 3V from 02/12/2019 CR XR FOOT WT BEARING RT 3V from 07/05/2019 CR XR FOOT WT BEARING LT 3V from 07/05/2019 CR XR FOOT WT BEARING LT 3V from 11/29/2019 FINDINGS: Fluoroscopy time: 17 seconds Single images submitted showing pins present within the 2nd 3rd 4th and 5th toes as well as a medial staple at the base of the proximal phalanx of the great toe and 2 screws within the distal aspect of the 2nd and 3rd metatarsals. Prior fusion of the midfoot also noted. Other findings:None. IMPRESSION: Postsurgical changes as described above Dictated by: Renny Zamarripa MD 12/12/2019 12:40 Renny Zamarripa MD in [place] 12/12/2019 12:40
--- NOTE | 2019-12-12 12:21 | P.PN_ITS ---
[facility] Anesthesia Record Part I Intake, IV Amount: 750 Estimated blood loss (mL): 10 Urine output (mL): 0 Blood Products used (#): none Blood Pressure: 133/56 SaO2: 95 Pulse Rate: 80 Respiratory Rate: 18 Temperature: 98.3 F Patient is:: Drowsy, Nasal O2, Stable Stable to PACU at:: 12:19
--- NOTE | 2019-12-12 14:40 | P.PN_ITS ---
[facility] Anesthesia Record Part II Discharge Time: 12:49 Destination: Surgical Day Care (OP Surgery) PACU nurse assessment reviewed?: Yes Patient Condition:: Good Anesthesia Complications:: None Swallowing reflex intact?: Yes Cyanosis?: No Blood Pressure: 157/88 Pulse Rate: 83 Temperature: 97.3 F Mental Status: Alert & Oriented Pain level:: 0 Nausea and/or vomitting:: None Intake, IV Amount: 35
--- NOTE | 2019-12-12 16:01 | HMH.OPNOTE ---
Date of procedure: 12/12/19 Pre-op Diagnosis:: 1. Left hammertoes 2-5 2. Left hallux interphalangus 3. Left plantar plate tear 2-3 4. Left foot capsulitis 5. Left hallux valgus 6. Left foot osteoarthritis 7. Left foot metatarsalgia Post-op Diagnosis:: Same Procedure performed:: 1. Left foot modified [place]st with Ag osteotomy 2. Left 2-3rd shortening metatarsal osteotomy 3. Left metatarsophalangeal joint releases 2-3 4. Left hammertoe repairs, digits 2-5 (PIPJ arthrodesis 2-4, PIPJ arthroplasty 5) 5. Left plantar plate repair digits 2-3 6. Left foot scar excision 7. Left foot synovectomy 8. Application of amniotic graft 9. Application of posterior splint Surgeon:: Mavis Haq DPM APPLIQUE CUTTER:: Noah Robbins Anesthesia: GETA, local (30cc 0.5% marcaine plain) Estimated blood loss (mL): 30 Clinical Note:: Patient is continuing to do the stretching at home, along with icing, wider shoe gear. She did get new Drobonis shoes with a wider toe box which are more comfortable. She is wearing toe socks and taping the left 2-4th toes, which helps some. We discussed any recent injuries. She states she was trying to do the heel raises and pushing up on her tiptoes more, which could have accounted for some of the soreness. Explained if she had insufficiency or a plantar plate partial tear or rupture, it could cause her to drift up and over. The patient was holding and taping the toe in place but it is continued to drift up and over and is causing more pain with increased activity. She has been doing more physical therapy due to right knee pain and meniscal injury. She states the increase activity has made the left foot her worse. We discussed suspected plantar plate repair. We discussed surgery for hammertoe correction with capsulotendon balancing, as she has failed conservative care. The patient has tried modification of shoe gear, taping, strapping, inserts, ice, elevation, and NSAIDs. She has also tried bracing, injections and physical therapy. After a long discussion with the patient in regards to the conservative versus surgical treatment for the hammertoe deformity, the patient has elected to proceed with surgery because they have failed conservative treatment and continue to have pain and worsening symptoms affecting daily activities. The patient has been instructed on the planned procedure, all risk versus benefits of the procedure discussed. These include but are not limited to: bleeding, infection, nerve and blood vessel damage, need for further surgery, delay in healing of soft tissue or bone, failure of bones to heal, non-union, mal-union, failure of the implant, recurrence of deformity, worsening scar/contracture, prolonged pain and recovery, CRPS/RSD, DVT and anesthetic complications. No guarantees were given. All questions fully answered. The patient verbalized understanding and agreed to proceed with surgery. Written consent was obtained. Necessary labs and pre-op testing: CBC, CMP, vit D, CXR, EKG, covid. Patient got need medical clearance via PCP at [facility] with Dr. Ocampo 11/30/19 @1400. Operative findings:: There is recurrent hallux valgus noted. First metatarsal head cartilage intact but worn. Osteochondral defect noted to the dorsal aspect of the 2nd metatarsal head. There was soft bones noted to the second and third metatarsal heads as well as the digits. Plantar plate tear at the second MPJ. Third plantar plate was attenuated with a partial tear. Hammertoe contractures noted on all digits, left foot. No deep signs of infection noted. Due to the poor bone quality and revisional nature of parts of the procedure, there was more scar tissue and dissection warranted therefore this procedure took 1 hour longer than normal. Operative note:: On this date and time patient was deemed an appropriate surgical candidate. With informed consent signed, the patient was taken to the operating theater. The patient was positioned supine. General anesthe
== END 2019-12-12 13:40 | disposition home or self-care (01) ==
PROVIDERS: Visit Provider Podiatrist
PROC: (CPT 28285; principal; 2019-12-12 08:45)
DX: M20.42 Other hammer toe(s) (acquired), left foot (principal); M77.42 Metatarsalgia, left foot; M20.12 Hallux valgus (acquired), left foot; M19.072 Primary osteoarthritis, left ankle and foot; M21.612 Bunion of left foot
CPT/HCPCS: 28285 ×4; 28298; 28755; 73620; 73630; 76000; 86328; 88305; 93005; 96374; C1713; C1762; J2405

== ENCOUNTER → 2020-01-09 09:46 | Outpatient (CLI) | payer MEDICARE, SELFPAY ==
--- NOTE | 2020-01-09 09:52 | XR_ITS ---
PROCEDURE: XR FOOT WT BEARING LT 3V CLINICAL INDICATION: POST-OP Follow-up surgery COMPARISON: CR XR FOOT WT BEARING LT 3V from 07/05/2019 CR XR FOOT WT BEARING LT 3V from 11/29/2019 CR XR FOOT LT 2V from 12/12/2019 CR XR FOOT LT MIN 3V from 12/12/2019 FINDINGS: The splint has been removed. Multiple screws udong and bone plate once again noted at the 1st metatarsal tarsal joint. There are 3 duong present. One staple is present at the navicular cuneiform region. The legs of that stable have fractured. The other 2 duong which are at the 2nd and 3rd metatarsal tarsal junction appear intact. There is a staple at the proximal aspect of the proximal phalanx of the great toe. There is buckling of the cortex at that level. Two screws are present at the head of the 2nd and 3rd metatarsals. Pins have been removed from the 2nd 3rd 4th and 5th toes. Osteotomy is noted at the distal aspect of the proximal phalanx of the 2nd and 3rd toe. There is pes planus with osteoarthritic changes at the talonavicular and navicular cuneiform joint. There is mild lateral subluxation of the proximal phalanx of the 2nd and 3rd toes IMPRESSION: Postsurgical changes as detailed above. Please see above for detail. It appears that the legs of the large staple at the navicular cuneiform junction have fractured. Dictated by: Renny Zamarripa MD 01/09/2020 15:06 Renny Zamarripa MD in [place] 01/09/2020 15:06
== END ==
PROVIDERS: PCP Nurse Practitioner; Visit Provider Podiatrist
DX: Z98.890 Other specified postprocedural states (principal); S99.922D Unspecified injury of left foot, subsequent encounter
CPT/HCPCS: 73630